=== PATIENT | female | born 1995 | race Caucasian/White ===

== ENCOUNTER 2019-02-17 13:18 | Inpatient (IN) | payer OTHER ==
[~2019-02-17] VITALS: Ht 170.2 cm; Wt 81.4 kg
[2019-02-17] MEDS ORDERED: ONDANSETRON PF 4 MG/2 ML VIAL. ONE (14:17)
[2019-02-17] MEDS ORDERED: IV NORMAL SALINE 1000ML BAG 1,000 ML IV ONE (14:30)
[2019-02-17] MEDS ORDERED: ONDANSETRON PF 4 MG/2 ML VIAL. IV ONE ×3 (14:30→17:30)
[2019-02-17 14:39] LABS: BILIRUBIN,URINE NEGATIVE (NEG); CLARITY,URINE CLEAR; COLOR,URINE YELLOW; NITRITE,URINE NEGATIVE (NEG); PROTEIN,URINE NEGATIVE (NEG-TRACE); UROBILINOGEN,URINE 0.2 mg/dL (0.2 mg/dL)
[2019-02-17 14:49] LABS: BACTERIA,URINE 0 /HPF (0-FEW); RBC,URINE 0 /HPF (0-2); SQUAMOUS EPITHELIAL CELL,UR FEW /LPF; WBC,URINE 0 /HPF (0-4)
[2019-02-17 15:01] LABS: BASO # 0.1 x10^3/uL (0.0-0.2); BASO % 1 % (0-3); EOS # 0.1 x10^3/uL (0.0-0.7); EOS % 1 % (0-3); HEMATOCRIT 43.6 % (36.0-47.0); HEMOGLOBIN 14.4 g/dL (12.0-15.5); LYMPH # 2.5 x10^3/uL (1.0-4.8); LYMPH % 25 % (24-48); MEAN CORPUSCULAR HEMOGLOBIN 28 pg (25-35); MEAN CORPUSCULAR HGB CONC 33 g/dL (31-37); MEAN CORPUSCULAR VOLUME 85 fL (79-100); MONO # 0.5 x10^3/uL (0.0-1.1); MONO % 5 % (0-9); NEUT # 6.9 x10^3/uL (1.8-7.7); NEUT % 69 % (31-73); PLATELET COUNT 245 x10^3/uL (140-400); RED BLOOD COUNT 5.14 x10^6/uL (3.50-5.40); RED CELL DISTRIBUTION WIDTH 13.7 % (11.5-14.5)
--- NOTE | 2019-02-17 15:07 | PHYS DOC ---
Past Medical History Past Medical History: Other Additional Past Medical Histor: hypoglycemic (TERENCE ABERNATHY APRN) Past Surgical History: Cholecystectomy, Tonsillectomy Additional Past Surgical Histo: wisdom teeth (TERENCE ABERNATHY APRN) Alcohol Use: None Drug Use: None (TERENCE ABERNATHY APRN) Attending Signature I have participated in the care of this patient and I have reviewed and agree with all pertinent clinical information above including history, exam, and recommendations. (MELANIE THAO MD) Adult General Chief Complaint Chief Complaint: ABDOMINAL PAIN HPI HPI Patient is a 23 year old female that presents with abdominal pain and back pain that started last night around 1245. The patient states she's had nausea and vomiting all day. She also states that she went to the bathroom earlier and that did not help her pain. She says she's been having global urinary frequency as well. Rates her pain 10 out of 10 in severity and the pain is located in the right lower quadrant of her abdomen. (TERENCE ABERNATHY APRN) Review of Systems Review of Systems Constitutional: Denies fever or chills [] Eyes: Denies change in visual acuity, redness, or eye pain [] HENT: Denies nasal congestion or sore throat [] Respiratory: Denies cough or shortness of breath [] Cardiovascular: No additional information not addressed in HPI [] GI: Reports abdominal pain, nausea, vomiting, Denies bloody stools or diarrhea [] : Reports frequency. Musculoskeletal: Denies back pain or joint pain [] Integument: Denies rash or skin lesions [] Neurologic: Denies headache, focal weakness or sensory changes [] Complete systems were reviewed and found to be within normal limits, except as documented in this note. (TERENCE ABERNATHY APRN) Current Medications Current Medications Current Medications Medications (Trade) Dose Ordered Sig/Judy Start Time Stop Time Status Last Admin Dose Admin Info (CONTRAST GIVEN -- Rx MONITORING) 1 each PRN DAILY PRN 02/17/19 15:45 02/19/19 15:12 DC Iohexol (Omnipaque 300 Mg/ml) 75 ml 1X ONCE 02/17/19 15:45 02/17/19 15:46 DC 02/17/19 15:56 75 ML Morphine Sulfate (Morphine Sulfate) 4 mg 1X ONCE 02/17/19 17:00 02/17/19 17:05 DC 02/17/19 17:25 4 MG Ondansetron HCl (Zofran) 4 mg 1X ONCE 02/17/19 14:30 02/17/19 14:34 DC Sodium Chloride 1,000 ml @ 1,000 mls/hr 1X ONCE 02/17/19 14:30 02/17/19 15:29 DC 02/17/19 14:30 1,000 MLS/HR (MELANIE THAO MD) Allergies Allergies Allergies Coded Allergies Type Severity Reaction Last Updated Verified doxycycline Allergy Intermediate Nausea 10/27/14 No (MELANIE THAO MD) Physical Exam Physical Exam Constitutional: Well developed, well nourished, no acute distress, non-toxic appearance. [] HENT: Normocephalic, atraumatic, bilateral external ears normal, oropharynx moist, no oral exudates, nose normal. [] Eyes: PERRLA, EOMI, conjunctiva normal, no discharge. [] Neck: Normal range of motion, no tenderness, supple, no stridor. [] Cardiovascular:Heart rate regular rhythm, no murmur [] Lungs & Thorax: Bilateral breath sounds clear to auscultation [] Abdomen: Bowel sounds normal, soft, RLQ rebound tenderness, has heel tap tenderness, no masses, no pulsatile masses. [] Skin: Warm, dry, no erythema, no rash. [] Back: No tenderness, no CVA tenderness. [] Extremities: No tenderness, no cyanosis, no clubbing, ROM intact, no edema. [] Neurologic: Alert and oriented X 3, normal motor function, normal sensory function, no focal deficits noted. [] Psychologic: Affect normal, judgement normal, mood normal. [] (TERENCE ABERNATHY APRN) Current Patient Data Vital Signs Vital Signs Date Time Temp Pulse Resp B/P (MAP) Pulse Ox O2 Delivery O2 Flow Rate FiO2 02/17/19 17:00 80 16 110/71 (84) 97 Room Air 02/17/19 13:25 97.9 97.9 (MELANIE THAO MD) Lab Values Laboratory Tests Test 02/17/19 14:18 02/17/19 14:21 02/17/19 14:50 Urine Collection Type Void Urine Color Yellow Urine Clarity Clear Urine pH 6.0 Urine Specific [place] 1.015 Urine Protein Negative mg/dL (NEG-TRACE) Urine Glucose (UA) Negative mg/dL (NEG) Urine Ketones (Stick) Negative mg/dL (NEG) Urine Blood Negative (NEG) Urine Nitrite Negative (NEG) Urine Bilirubin Negative (NEG) Urine Urobilinogen Dipstick 0.2 mg/dL (0.2 mg/dL) Urine Leukocyte Esterase Trace (NEG) Urine RBC 0 /HPF (0-2) Urine WBC 0 /HPF (0-4) Urine Squamous Epithelial Cells Few /LPF Urine Bacteria 0 /HPF (0-FEW) Urine Mucus Slight /LPF POC Urine HCG, Qualitative Hcg negative (Negative) White Blood Count 10.0 x10^3/uL (4.0-11.0) Red Blood Count 5.14 x10^6/uL (3.50-5.40) Hemoglobin 14.4 g/dL (12.0-15.5) Hematocrit 43.6 % (36.0-47.0) Mean Corpuscular Volume 85 fL (79-100) Mean Corpuscular Hemoglobin 28 pg (25-35) Mean Corpuscular Hemoglobin Concent 33 g/dL (31-37) Red Cell Distribution Width 13.7 % (11.5-14.5) Platelet Count 245 x10^3/uL (140-400) Neutrophils (%) (Auto) 69 % (31-73) Lymphocytes (%) (Auto) 25 % (24-48) Monocytes (%) (Auto) 5 % (0-9) Eosinophils (%) (Auto) 1 % (0-3) Basophils (%) (Auto) 1 % (0-3) Neutrophils # (Auto) 6.9 x10^3/uL (1.8-7.7) Lymphocytes # (Auto) 2.5 x10^3/uL (1.0-4.8) Monocytes # (Auto) 0.5 x10^3/uL (0.0-1.1) Eosinophils # (Auto) 0.1 x10^3/uL (0.0-0.7) Basophils # (Auto) 0.1 x10^3/uL (0.0-0.2) Prothrombin Time 12.9 SEC (11.7-14.0) Prothrombin Time INR 1.0 (0.8-1.1) Sodium Level 142 mmol/L (136-145) Potassium Level 4.3 mmol/L (3.5-5.1) Chloride Level 107 mmol/L (98-107) Carbon Dioxide Level 26 mmol/L (21-32) Anion Gap 9 (6-14) Blood Urea Nitrogen 11 mg/dL (7-20) Creatinine 0.9 mg/dL (0.6-1.0) Estimated GFR (Cockcroft-Gault) 76.9 BUN/Creatinine Ratio 12 (6-20) Glucose Level 93 mg/dL (70-99) Calcium Level 8.5 mg/dL (8.5-10.1) Total Bilirubin 0.4 mg/dL (0.2-1.0) Aspartate Amino Transferase (AST) 22 U/L (15-37) Alanine Aminotransferase (ALT) 32 U/L (14-59) Alkaline Phosphatase 69 U/L (46-116) Total Protein 7.5 g/dL (6.4-8.2) Albumin 4.0 g/dL (3.4-5.0) Albumin/Globulin Ratio 1.1 (1.0-1.7) Lipase 130 U/L (73-393) Laboratory Tests 02/17/19 14:50 Laboratory Tests 02/17/19 14:50 Microbiology 02/17/19 Urine Culture - Final, Complete 02/17/19 Urine Culture Result 1 (MAL) - Final, Complete (MELANIE THAO MD) EKG EKG [] (TERENCE ABERNATHY APRN) Radiology/Procedures Radiology/Procedures [][facility] [address] [place] [address] IMAGING REPORT Signed PATIENT: MARIBELL CRISTOBAL ACCOUNT: [id number] : 1995 LOCATION: ER AGE: 23 SEX: F EXAM STATUS: REG ER ORD. PHYSICIAN: TERENCE ABERNATHY APRN REASON: rlq abd pain PROCEDURE: CT ABD PELV W/ IV CONTRST ONLY CT of the abdomen and pelvis with contrast 02/17/2019 4:01 PM Indication: Right lower quadrant abdominal pain Comparison study: None available Technique: Multidetector CT imaging of the abdomen and pelvis was performed following the administration of IV contrast. Findings: The partially visualized lung bases demonstrate no acute abnormality. Prior cholecystectomy noted. Mild prominence of the common bile duct is noted, most likely reservoir effect. Spleen, adrenal glands, kidneys, and pancreas are grossly unremarkable. There is no bowel obstruction. Radiodense material noted within the base of the appendix. Possibly appendicoliths. The distal aspect of the appendix is mildly dilated measuring up to 1 cm in diameter (coronal image 23). Minimal periappendiceal fat stranding may be present. The bladder is grossly unremarkable. Intrauterine device noted. No significant free fluid is seen in the abdomen or pelvis. No acute osseous abnormality is seen. IMPRESSION: Radiodense material in base of the appendix with dilatation of the appendix up to 1 cm and minimal periappendiceal stranding. Findings concerning for mild or early acute appendicitis. CT DOSING PQRS STATEMENT: One or more of the following individualized dose reduction techniques were utilized for this examination: 1. Automated exposure control 2. Adjustment of the mA and/or kV according to patient size 3. Use of iterative reconstruction technique Electronically signed by: Jonathan Camejo MD (02/17/2019 4:06 PM) [facility] DICTATED and SIGNED BY: JONATHAN CAMEJO MD (TERENCE ABERNATHY APRN) Course & Med Decision Making Course & Med Decision Making Pertinent Labs and Imaging studies reviewed. (See chart for details) Patient does not have gallbladder but will evaluate her appendix. Will get labs and CT and give supportive care. Labs are unremarkable. Paged General Surgery at 1640. Discussed with Dr. Varma who request hospital admission, Zosyn and then NPO after midnight and will likely perform surgery in the morning. Discussed with Dr. Starr at 1710 who agrees to admission. (TERENCE ABERNATHY APRN) Dragon Disclaimer Dragon Disclaimer This electronic medical record was generated, in whole or in part, using a voice recognition dictation system. (TERENCE ABERNATHY APRN) Departure Departure Impression: Primary Impression: Acute appendicitis Disposition: ADMITTED INPATIENT Admitting Physician: WAYLON (TERENCE ABERNATHY APRN) Condition: STABLE Referrals: NO PCP (PCP) Scripts Hydrocodone Bit/Acetaminophen (HYDROCODONE-APAP 5-325 ) 1 Tab Tablet 1 TAB PO PRN Q4HRS PRN for MILD PAIN 1-3, #30 TAB 0 Refills Prov: NICKEL,HAMZAH L [employer] 02/19/19 Docusate Sodium (DOCUSATE SODIUM) 100 Mg Capsule 100 MG PO BID for constipation, #60 CAP 0 Refills Prov: HAMZAH LEYVA APRN 02/19/19 Problem Qualifiers Primary Impression: Acute appendicitis Acute appendicitis type: unspecified acute appendicitis type Qualified Codes: K35.80 - Unspecified acute appendicitis TERENCE ABERNATHY APRN Feb 17, 2019 15:07 MELANIE THAO MD Feb 20, 2019 06:17
[2019-02-17] MEDS ORDERED: MORPHINE SULFATE 4 MG/ML VIAL. IV ONE ×2 (15:15→17:00)
[2019-02-17 15:22] LABS: CALCIUM 8.5 mg/dL (8.5-10.1); CREATININE 0.9 mg/dL (0.6-1.0); GFR 76.9; POTASSIUM 4.3 mmol/L (3.5-5.1)
[2019-02-17 15:36] LABS: ALBUMIN/GLOBULIN RATIO 1.1 (1.0-1.7); TOTAL BILIRUBIN 0.4 mg/dL (0.2-1.0); TOTAL PROTEIN 7.5 g/dL (6.4-8.2)
[2019-02-17] MEDS ORDERED: CONTRAST GIVEN. MC PRN (15:45)
[2019-02-17] MEDS ORDERED: IOHEXOL 300 MG/ML 100ML VIAL. IV ONE (15:45)
--- NOTE | 2019-02-17 16:09 | RAD ---
CT of the abdomen and pelvis with contrast 02/17/2019 4:01 PM Indication: Right lower quadrant abdominal pain Comparison study: None available Technique: Multidetector CT imaging of the abdomen and pelvis was performed following the administration of IV contrast. Findings: The partially visualized lung bases demonstrate no acute abnormality. Prior cholecystectomy noted. Mild prominence of the common bile duct is noted, most likely reservoir effect. Spleen, adrenal glands, kidneys, and pancreas are grossly unremarkable. There is no bowel obstruction. Radiodense material noted within the base of the appendix. Possibly appendicoliths. The distal aspect of the appendix is mildly dilated measuring up to 1 cm in diameter (coronal image 23). Minimal periappendiceal fat stranding may be present. The bladder is grossly unremarkable. Intrauterine device noted. No significant free fluid is seen in the abdomen or pelvis. No acute osseous abnormality is seen. IMPRESSION: Radiodense material in base of the appendix with dilatation of the appendix up to 1 cm and minimal periappendiceal stranding. Findings concerning for mild or early acute appendicitis. CT DOSING PQRS STATEMENT: One or more of the following individualized dose reduction techniques were utilized for this examination: 1. Automated exposure control 2. Adjustment of the mA and/or kV according to patient size 3. Use of iterative reconstruction technique Electronically signed by: Jonathan Shaver MD (02/17/2019 4:06 PM) [facility]
[2019-02-17] MEDS ORDERED: PIPERACILLIN/TAZOBACTAM 3.375 GM in IV NORMAL SALINE 50ML 50 ML IV ONE (17:30)
[2019-02-17] MEDS ORDERED: NICOTINE 21MG PATCH. TD PRN (17:45)
[2019-02-17] MEDS ORDERED: ONDANSETRON PF 4 MG/2 ML VIAL. IVP PRN (17:45)
--- NOTE | 2019-02-17 17:49 | PDOC1 ---
History and Physical Date of Admission Date of Admission DATE: 02/17/19 TIME: 17:46 Identification/Chief Complaint Chief Complaint right sided abd pain started last night Source Source: Caregiver, Chart review, Patient History of Present Illness History of Present Illness 23 white female, no signif past medical aside from occasional zoloft at home, RLQ pain and back pain last night, some nausea, low grade temp she claims, no diarrhea, Imaging shows appy, BLood work ok, NAuseas, bucket at beside, Consents to [place], GS aware, NPO post MN for sx tmr Past Medical History Psych: Depression Past Surgical History Past Surgical History: Other (wisdom tooth removal) Family History Family History: Hypertension Social History Smoke: <1 pack per day ALCOHOL: occassional Drugs: None Current Problem List Problem List Problems Medical Problems: (1) Acute appendicitis Status: Acute Current Medications Current Medications Current Medications Ondansetron HCl (Zofran) 4 mg STK-MED ONCE .ROUTE ; Start 02/17/19 at 14:17; Stop 02/17/19 at 14:17; Status DC Ondansetron HCl (Zofran) 4 mg 1X ONCE IV Last administered on 02/17/19at 14:30; Start 02/17/19 at 14:30; Stop 02/17/19 at 14:34; Status DC Ondansetron HCl (Zofran) 4 mg 1X ONCE IV ; Start 02/17/19 at 14:30; Stop 02/17/19 at 14:34; Status DC Sodium Chloride 1,000 ml @ 1,000 mls/hr 1X ONCE IV Last administered on 02/17/19at 14:30; Start 02/17/19 at 14:30; Stop 02/17/19 at 15:29; Status DC Morphine Sulfate (Morphine Sulfate) 4 mg 1X ONCE IV Last administered on 02/17/19at 15:10; Start 02/17/19 at 15:15; Stop 02/17/19 at 15:16; Status DC Iohexol (Omnipaque 300 Mg/ml) 75 ml 1X ONCE IV Last administered on 02/17/19at 15:56; Start 02/17/19 at 15:45; Stop 02/17/19 at 15:46; Status DC Info (CONTRAST GIVEN -- Rx MONITORING) 1 each PRN DAILY PRN MC SEE COMMENTS; Start 02/17/19 at 15:45; Stop 02/19/19 at 15:44 Morphine Sulfate (Morphine Sulfate) 4 mg 1X ONCE IV Last administered on at 17:25; Start 02/17/19 at 17:00; Stop 02/17/19 at 17:05; Status DC Ondansetron HCl (Zofran) 4 mg 1X ONCE IV Last administered on 02/17/19at 17:24; Start 02/17/19 at 17:30; Stop 02/17/19 at 17:31; Status DC Piperacillin Sod/ Tazobactam Sod 3.375 gm/Sodium Chloride 50 ml @ 100 mls/hr 1X ONCE IV Last administered on 02/17/19at 17:29; Start 02/17/19 at 17:30; Stop 02/17/19 at 17:59 Allergies Allergies: Coded Allergies: doxycycline (Unverified Allergy, Intermediate, Nausea, 10/27/14) patient states nausea and lips numb ROS Review of System as per HPi, all else 14 pt neg Physical Exam General: Alert, Oriented X3, Cooperative, No acute distress, Other (bucket at bedside, nauseus) HEENT: Atraumatic, PERRLA Lungs: Clear to auscultation Heart: S1S2, RRR, no thrills, no rubs Cardiovascular: S1, S2 Breasts: Normal, Rt breast nml w/o mass, Lt breast nml w/o mass, Nipples normal Abdomen: Normal bowel sounds, Soft, Other (tender RLQ with voluntary guarding) PELVIC: Nml ext genitalia Extremities: No clubbing, No cyanosis, No edema, Normal pulses, No tenderness/swelling Skin: No rashes, No breakdown, No significant lesion Neuro: Normal gait, Normal speech, Strength at 5/5 X4 ext, Normal tone, Sensation intact, Cranial nerves 3-12 NL, Reflexes 2+ Psych/Mental Status: Mental status NL, Mood NL Vitals Vitals Vital Signs Date Time Temp Pulse Resp B/P (MAP) Pulse Ox O2 Delivery O2 Flow Rate FiO2 02/17/19 17:25 16 98 Room Air 02/17/19 16:00 84 102/68 (79) 02/17/19 13:25 97.9 97.9 Labs Labs Laboratory Tests Test 02/17/19 14:18 02/17/19 14:21 02/17/19 14:50 Urine Collection Type Void Urine Color Yellow Urine Clarity Clear Urine pH 6.0 Urine Specific [place] 1.015 Urine Protein Negative mg/dL (NEG-TRACE) Urine Glucose (UA) Negative mg/dL (NEG) Urine Ketones (Stick) Negative mg/dL (NEG) Urine Blood Negative (NEG) Urine Nitrite Negative (NEG) Urine Bilirubin Negative (NEG) Urine Urobilinogen Dipstick 0.2 mg/dL (0.2 mg/dL) Urine Leukocyte Esterase Trace (NEG) Urine RBC 0 /HPF (0-2) Urine WBC 0 /HPF (0-4) Urine Squamous Epithelial Cells Few /LPF Urine Bacteria 0 /HPF (0-FEW) Urine Mucus Slight /LPF Bedside Urine HCG, Qualitative Hcg negative (Negative) White Blood Count 10.0 x10^3/uL (4.0-11.0) Red Blood Count 5.14 x10^6/uL (3.50-5.40) Hemoglobin 14.4 g/dL (12.0-15.5) Hematocrit 43.6 % (36.0-47.0) Mean Corpuscular Volume 85 fL (79-100) Mean Corpuscular Hemoglobin 28 pg (25-35) Mean Corpuscular Hemoglobin Concent 33 g/dL (31-37) Red Cell Distribution Width 13.7 % (11.5-14.5) Platelet Count 245 x10^3/uL (140-400) Neutrophils (%) (Auto) 69 % (31-73) Lymphocytes (%) (Auto) 25 % (24-48) Monocytes (%) (Auto) 5 % (0-9) Eosinophils (%) (Auto) 1 % (0-3) Basophils (%) (Auto) 1 % (0-3) Neutrophils # (Auto) 6.9 x10^3/uL (1.8-7.7) Lymphocytes # (Auto) 2.5 x10^3/uL (1.0-4.8) Monocytes # (Auto) 0.5 x10^3/uL (0.0-1.1) Eosinophils # (Auto) 0.1 x10^3/uL (0.0-0.7) Basophils # (Auto) 0.1 x10^3/uL (0.0-0.2) Sodium Level 142 mmol/L (136-145) Potassium Level 4.3 mmol/L (3.5-5.1) Chloride Level 107 mmol/L (98-107) Carbon Dioxide Level 26 mmol/L (21-32) Anion Gap 9 (6-14) Blood Urea Nitrogen 11 mg/dL (7-20) Creatinine 0.9 mg/dL (0.6-1.0) Estimated GFR (Cockcroft-Gault) 76.9 BUN/Creatinine Ratio 12 (6-20) Glucose Level 93 mg/dL (70-99) Calcium Level 8.5 mg/dL (8.5-10.1) Total Bilirubin 0.4 mg/dL (0.2-1.0) Aspartate Amino Transf (AST/SGOT) 22 U/L (15-37) Alanine Aminotransferase (ALT/SGPT) 32 U/L (14-59) Alkaline Phosphatase 69 U/L (46-116) Total Protein 7.5 g/dL (6.4-8.2) Albumin 4.0 g/dL (3.4-5.0) Albumin/Globulin Ratio 1.1 (1.0-1.7) Lipase 130 U/L (73-393) Laboratory Tests Test 02/17/19 14:18 02/17/19 14:21 02/17/19 14:50 Urine Collection Type Void Urine Color Yellow Urine Clarity Clear Urine pH 6.0 Urine Specific [place] 1.015 Urine Protein Negative mg/dL (NEG-TRACE) Urine Glucose (UA) Negative mg/dL (NEG) Urine Ketones (Stick) Negative mg/dL (NEG) Urine Blood Negative (NEG) Urine Nitrite Negative (NEG) Urine Bilirubin Negative (NEG) Urine Urobilinogen Dipstick 0.2 mg/dL (0.2 mg/dL) Urine Leukocyte Esterase Trace (NEG) Urine RBC 0 /HPF (0-2) Urine WBC 0 /HPF (0-4) Urine Squamous Epithelial Cells Few /LPF Urine Bacteria 0 /HPF (0-FEW) Urine Mucus Slight /LPF Bedside Urine HCG, Qualitative Hcg negative (Negative) White Blood Count 10.0 x10^3/uL (4.0-11.0) Red Blood Count 5.14 x10^6/uL (3.50-5.40) Hemoglobin 14.4 g/dL (12.0-15.5) Hematocrit 43.6 % (36.0-47.0) Mean Corpuscular Volume 85 fL (79-100) Mean Corpuscular Hemoglobin 28 pg (25-35) Mean Corpuscular Hemoglobin Concent 33 g/dL (31-37) Red Cell Distribution Width 13.7 % (11.5-14.5) Platelet Count 245 x10^3/uL (140-400) Neutrophils (%) (Auto) 69 % (31-73) Lymphocytes (%) (Auto) 25 % (24-48) Monocytes (%) (Auto) 5 % (0-9) Eosinophils (%) (Auto) 1 % (0-3) Basophils (%) (Auto) 1 % (0-3) Neutrophils # (Auto) 6.9 x10^3/uL (1.8-7.7) Lymphocytes # (Auto) 2.5 x10^3/uL (1.0-4.8) Monocytes # (Auto) 0.5 x10^3/uL (0.0-1.1) Eosinophils # (Auto) 0.1 x10^3/uL (0.0-0.7) Basophils # (Auto) 0.1 x10^3/uL (0.0-0.2) Sodium Level 142 mmol/L (136-145) Potassium Level 4.3 mmol/L (3.5-5.1) Chloride Level 107 mmol/L (98-107) Carbon Dioxide Level 26 mmol/L (21-32) Anion Gap 9 (6-14) Blood Urea Nitrogen 11 mg/dL (7-20) Creatinine 0.9 mg/dL (0.6-1.0) Estimated GFR (Cockcroft-Gault) 76.9 BUN/Creatinine Ratio 12 (6-20) Glucose Level 93 mg/dL (70-99) Calcium Level 8.5 mg/dL (8.5-10.1) Total Bilirubin 0.4 mg/dL (0.2-1.0) Aspartate Amino Transf (AST/SGOT) 22 U/L (15-37) Alanine Aminotransferase (ALT/SGPT) 32 U/L (14-59) Alkaline Phosphatase 69 U/L (46-116) Total Protein 7.5 g/dL (6.4-8.2) Albumin 4.0 g/dL (3.4-5.0) Albumin/Globulin Ratio 1.1 (1.0-1.7) Lipase 130 U/L (73-393) VTE Prophylaxis Ordered VTE Prophylaxis Devices: Yes VTE Pharmacological Prophylaxi: Yes Assessment/Plan Assessment/Plan Acute appy Depression NOS Overweight bMI 28 Allergy to doxy (rash) PLAn: IVF, pain control, NPO GS Appy tmr MEd surg bed KURT DE LEON Y Feb 17, 2019 17:49
[2019-02-17 18:14] LABS: PROTHROMBIN TIME PATIENT 12.9 SEC (11.7-14.0)
[2019-02-17 18:55] VITALS: BP_SYST 58; BP_SYST 98; BP_DIAS 44
[2019-02-17] MEDS: IV NORMAL SALINE 1000ML BAG 1,000 ML IV SCH (19:24)
[2019-02-17] MEDS: MORPHINE SULFATE 2 MG/ML VIAL. IV PRN (20:40)
[2019-02-17] MEDS ORDERED: PROCHLORPERAZINE 10 MG/2 ML VIAL. IM PRN (22:00)
[2019-02-17] MEDS: fentaNYL PF VIAL 100 MCG/2 ML VIAL IVP PRN (22:52)
[2019-02-17 23:05] VITALS: BP 95/59
[2019-02-18] VITALS (14 sets, daily range): BP systolic 76–102; BP diastolic 36–63
[2019-02-18] MEDS: MORPHINE SULFATE 2 MG/ML VIAL. IV PRN ×3 (06:09→23:18)
[2019-02-18] MEDS: IV NORMAL SALINE 1000ML BAG 1,000 ML IV SCH ×3 (06:10→23:18)
[2019-02-18] MEDS: fentaNYL PF VIAL 100 MCG/2 ML VIAL IVP PRN ×2 (08:02→11:49)
--- NOTE | 2019-02-18 08:18 | PDOC2 ---
HAMZAH LEYVA [employer] 02/18/19 0818: CONSULT Date of Consult Date of Consult DATE: 02/18/19 TIME: 08:15 Reason for Consult Reason for Consult: RLQ pain Referring Physician Referring Physician: ER Identification/Chief Complaint Chief Complaint abdominal pain Source Source: Chart review, Patient History of Present Illness Reason for Visit: 2 days acute RLQ pain, associated nausea, chills. Pain aggravated with movem ent. Associated nausea Past Medical History Past Medical History no pertinent hx Psych: Depression Past Surgical History Past Surgical History: Cholecystectomy, Other (wisdom tooth removal) Family History Family History: Hypertension, Other (noncontributory to current illness ) Social History No ALCOHOL: occassional Drugs: None Current Problem List Problem List Problems Medical Problems: (1) Acute appendicitis Status: Acute Current Medications Current Medications Current Medications Ondansetron HCl (Zofran) 4 mg STK-MED ONCE .ROUTE ; Start 02/17/19 at 14:17; Stop 02/17/19 at 14:17; Status DC Ondansetron HCl (Zofran) 4 mg 1X ONCE IV Last administered on 02/17/19at 14:30; Start 02/17/19 at 14:30; Stop 02/17/19 at 14:34; Status DC Ondansetron HCl (Zofran) 4 mg 1X ONCE IV ; Start 02/17/19 at 14:30; Stop 02/17/19 at 14:34; Status DC Sodium Chloride 1,000 ml @ 1,000 mls/hr 1X ONCE IV Last administered on 02/17/19at 14:30; Start 02/17/19 at 14:30; Stop 02/17/19 at 15:29; Status DC Morphine Sulfate (Morphine Sulfate) 4 mg 1X ONCE IV Last administered on 02/17/19at 15:10; Start 02/17/19 at 15:15; Stop 02/17/19 at 15:16; Status DC Iohexol (Omnipaque 300 Mg/ml) 75 ml 1X ONCE IV Last administered on 02/17/19at 15:56; Start 02/17/19 at 15:45; Stop 02/17/19 at 15:46; Status DC Info (CONTRAST GIVEN -- Rx MONITORING) 1 each PRN DAILY PRN MC SEE COMMENTS; Start 02/17/19 at 15:45; Stop 02/19/19 at 15:44 Morphine Sulfate (Morphine Sulfate) 4 mg 1X ONCE IV Last administered on 02/17/19at 17:25; Start 02/17/19 at 17:00; Stop 02/17/19 at 17:05; Status DC Ondansetron HCl (Zofran) 4 mg 1X ONCE IV Last administered on 02/17/19at 17:24; Start 02/17/19 at 17:30; Stop 02/17/19 at 17:31; Status DC Piperacillin Sod/ Tazobactam Sod 3.375 gm/Sodium Chloride 50 ml @ 100 mls/hr 1X ONCE IV Last administered on 02/17/19at 17:29; Start 02/17/19 at 17:30; Stop 02/17/19 at 17:59; Status DC Morphine Sulfate (Morphine Sulfate) 2 mg PRN Q2HR PRN IV MODERATE PAIN Last administered on 02/18/19at 06:09; Start 02/17/19 at 17:45 Ondansetron HCl (Zofran) 4 mg PRN Q6HRS PRN IVP NAUSEA/VOMITING Last administered on 02/17/19at 20:39; Start 02/17/19 at 17:45 Fentanyl Citrate (Fentanyl 2ml Vial) 50 mcg PRN Q2HR PRN IVP SEVERE PAIN Last administered on 02/18/19at 08:02; Start 02/17/19 at 17:45 Nicotine (Nicoderm Cq 21mg) 1 patch PRN DAILY PRN TD SMOKING CESSATION; Start 02/17/19 at 17:45 Sodium Chloride 1,000 ml @ 100 mls/hr Q10H IV Last administered on 02/18/19at 06:10; Start 02/17/19 at 17:45 Prochlorperazine Edisylate (Compazine) 10 mg PRN Q6HRS PRN IM NAUSEA/VOMITING Last administered on 02/17/19at 22:45; Start 02/17/19 at 22:00 Allergies Allergies: Coded Allergies: doxycycline (Unverified Allergy, Intermediate, Nausea, 10/27/14) patient states nausea and lips numb ROS General: YES: Chills, Fatigue PSYCHOLOGICAL ROS: No: Anxiety, Depression Eyes: No Blurry vision, No Double vision HEENT: No: Heacaches, Sore Throat Hematological and Lymphatic: No: Bleeding Problems, Blood Clots Respiratory: No: Cough, Shortness of breath Cardiovascular: No Chest Pain, No Palpitations Gastrointestinal: Yes Other (see hpi) Genitourinary: No Dysuria, No Hematuria Musculoskeletal: No Joint Pain, No Muscle Pain Neurological: No Impaired Coord/balance, No Numbness/Tingling Skin: No Pruritus, No Rash Physical Exam General: Alert, Oriented X3, Cooperative, No acute distress HEENT: PERRLA, Mucous membr. moist/pink Lungs: Clear to auscultation, Normal air movement Heart: Regular rate, Normal S1, Normal S2, No murmurs Abdomen: Soft, Other (moderate ttp to RLQ) Extremities: No clubbing, No cyanosis Skin: No rashes, No breakdown Neuro: Normal gait, Normal speech Psych/Mental Status: Mental status NL, Mood NL MUSCULOSKELETAL: No deformity, No swelling Vitals VITALS Vital Signs Date Time Temp Pulse Resp B/P (MAP) Pulse Ox O2 Delivery O2 Flow Rate FiO2 02/18/19 08:02 94 Room Air 02/18/19 06:11 98.8 96/54 (68) 98.8 02/18/19 06:09 20 02/18/19 03:00 86 Labs Labs Laboratory Tests Test 02/17/19 14:18 02/17/19 14:21 02/17/19 14:50 Urine Collection Type Void Urine Color Yellow Urine Clarity Clear Urine pH 6.0 Urine Specific [place] 1.015 Urine Protein Negative mg/dL (NEG-TRACE) Urine Glucose (UA) Negative mg/dL (NEG) Urine Ketones (Stick) Negative mg/dL (NEG) Urine Blood Negative (NEG) Urine Nitrite Negative (NEG) Urine Bilirubin Negative (NEG) Urine Urobilinogen Dipstick 0.2 mg/dL (0.2 mg/dL) Urine Leukocyte Esterase Trace (NEG) Urine RBC 0 /HPF (0-2) Urine WBC 0 /HPF (0-4) Urine Squamous Epithelial Cells Few /LPF Urine Bacteria 0 /HPF (0-FEW) Urine Mucus Slight /LPF Bedside Urine HCG, Qualitative Hcg negative (Negative) White Blood Count 10.0 x10^3/uL (4.0-11.0) Red Blood Count 5.14 x10^6/uL (3.50-5.40) Hemoglobin 14.4 g/dL (12.0-15.5) Hematocrit 43.6 % (36.0-47.0) Mean Corpuscular Volume 85 fL (79-100) Mean Corpuscular Hemoglobin 28 pg (25-35) Mean Corpuscular Hemoglobin Concent 33 g/dL (31-37) Red Cell Distribution Width 13.7 % (11.5-14.5) Platelet Count 245 x10^3/uL (140-400) Neutrophils (%) (Auto) 69 % (31-73) Lymphocytes (%) (Auto) 25 % (24-48) Monocytes (%) (Auto) 5 % (0-9) Eosinophils (%) (Auto) 1 % (0-3) Basophils (%) (Auto) 1 % (0-3) Neutrophils # (Auto) 6.9 x10^3/uL (1.8-7.7) Lymphocytes # (Auto) 2.5 x10^3/uL (1.0-4.8) Monocytes # (Auto) 0.5 x10^3/uL (0.0-1.1) Eosinophils # (Auto) 0.1 x10^3/uL (0.0-0.7) Basophils # (Auto) 0.1 x10^3/uL (0.0-0.2) Prothrombin Time 12.9 SEC (11.7-14.0) Prothromb Time International Ratio 1.0 (0.8-1.1) Sodium Level 142 mmol/L (136-145) Potassium Level 4.3 mmol/L (3.5-5.1) Chloride Level 107 mmol/L (98-107) Carbon Dioxide Level 26 mmol/L (21-32) Anion Gap 9 (6-14) Blood Urea Nitrogen 11 mg/dL (7-20) Creatinine 0.9 mg/dL (0.6-1.0) Estimated GFR (Cockcroft-Gault) 76.9 BUN/Creatinine Ratio 12 (6-20) Glucose Level 93 mg/dL (70-99) Calcium Level 8.5 mg/dL (8.5-10.1) Total Bilirubin 0.4 mg/dL (0.2-1.0) Aspartate Amino Transf (AST/SGOT) 22 U/L (15-37) Alanine Aminotransferase (ALT/SGPT) 32 U/L (14-59) Alkaline Phosphatase 69 U/L (46-116) Total Protein 7.5 g/dL (6.4-8.2) Albumin 4.0 g/dL (3.4-5.0) Albumin/Globulin Ratio 1.1 (1.0-1.7) Lipase 130 U/L (73-393) Laboratory Tests Test 02/17/19 14:18 02/17/19 14:21 02/17/19 14:50 Urine Collection Type Void Urine Color Yellow Urine Clarity Clear Urine pH 6.0 Urine Specific [place] 1.015 Urine Protein Negative mg/dL (NEG-TRACE) Urine Glucose (UA) Negative mg/dL (NEG) Urine Ketones (Stick) Negative mg/dL (NEG) Urine Blood Negative (NEG) Urine Nitrite Negative (NEG) Urine Bilirubin Negative (NEG) Urine Urobilinogen Dipstick 0.2 mg/dL (0.2 mg/dL) Urine Leukocyte Esterase Trace (NEG) Urine RBC 0 /HPF (0-2) Urine WBC 0 /HPF (0-4) Urine Squamous Epithelial Cells Few /LPF Urine Bacteria 0 /HPF (0-FEW) Urine Mucus Slight /LPF Bedside Urine HCG, Qualitative Hcg negative (Negative) White Blood Count 10.0 x10^3/uL (4.0-11.0) Red Blood Count 5.14 x10^6/uL (3.50-5.40) Hemoglobin 14.4 g/dL (12.0-15.5) Hematocrit 43.6 % (36.0-47.0) Mean Corpuscular Volume 85 fL (79-100) Mean Corpuscular Hemoglobin 28 pg (25-35) Mean Corpuscular Hemoglobin Concent 33 g/dL (31-37) Red Cell Distribution Width 13.7 % (11.5-14.5) Platelet Count 245 x10^3/uL (140-400) Neutrophils (%) (Auto) 69 % (31-73) Lymphocytes (%) (Auto) 25 % (24-48) Monocytes (%) (Auto) 5 % (0-9) Eosinophils (%) (Auto) 1 % (0-3) Basophils (%) (Auto) 1 % (0-3) Neutrophils # (Auto) 6.9 x10^3/uL (1.8-7.7) Lymphocytes # (Auto) 2.5 x10^3/uL (1.0-4.8) Monocytes # (Auto) 0.5 x10^3/uL (0.0-1.1) Eosinophils # (Auto) 0.1 x10^3/uL (0.0-0.7) Basophils # (Auto) 0.1 x10^3/uL (0.0-0.2) Prothrombin Time 12.9 SEC (11.7-14.0) Prothromb Time International Ratio 1.0 (0.8-1.1) Sodium Level 142 mmol/L (136-145) Potassium Level 4.3 mmol/L (3.5-5.1) Chloride Level 107 mmol/L (98-107) Carbon Dioxide Level 26 mmol/L (21-32) Anion Gap 9 (6-14) Blood Urea Nitrogen 11 mg/dL (7-20) Creatinine 0.9 mg/dL (0.6-1.0) Estimated GFR (Cockcroft-Gault) 76.9 BUN/Creatinine Ratio 12 (6-20) Glucose Level 93 mg/dL (70-99) Calcium Level 8.5 mg/dL (8.5-10.1) Total Bilirubin 0.4 mg/dL (0.2-1.0) Aspartate Amino Transf (AST/SGOT) 22 U/L (15-37) Alanine Aminotransferase (ALT/SGPT) 32 U/L (14-59) Alkaline Phosphatase 69 U/L (46-116) Total Protein 7.5 g/dL (6.4-8.2) Albumin 4.0 g/dL (3.4-5.0) Albumin/Globulin Ratio 1.1 (1.0-1.7) Lipase 130 U/L (73-393) Assessment/Plan Assessment/Plan acute appendicitis plan lap appy today NAYELI WILSON MD 02/18/19 0755: CONSULT Assessment/Plan Assessment/Plan Pt seen and examined. Agree with Ms. Leyva's note Pt with c/o RLQ CT and labs suggestive, but not definitive, but history c/w appendicitis TO OR for laparoscopic appendectomy. R/R/B/A d/w pt. Risks, including, but not limited to: bleeding, infection, damage to surrounding structures, risk of anesthesia, risk of open, risk of . She appears to understand, her questions are answered and she elects to proceed. Thanks for consult! HAMZAH LEYVA APRN Feb 18, 2019 08:18 NAYELI WILSON MD Feb 18, 2019 09:56
[2019-02-18] MEDS ORDERED: IV RINGERS,LACTATED 1000ML 1,000 ML IV SCH (08:20)
[2019-02-18] MEDS ORDERED: fentaNYL PF VIAL 100 MCG/2 ML VIAL IV PRN ×2 (08:30)
[2019-02-18] MEDS ORDERED: MORPHINE SULFATE 2 MG/ML VIAL. IV PRN (08:30)
[2019-02-18] MEDS ORDERED: ONDANSETRON PF 4 MG/2 ML VIAL. IV PRN ×2 (08:30→14:30)
[2019-02-18] MEDS ORDERED: PROCHLORPERAZINE 10 MG/2 ML VIAL. IV PRN (08:30)
[2019-02-18] MEDS ORDERED: HYDROmorphone 2 MG/ML VIAL IV PRN (08:30)
--- NOTE | 2019-02-18 09:51 | PDOC ---
PROGRESS NOTES History of Present Illness History of Present Illness VTE Prophylaxis Ordered VTE Prophylaxis Devices: Yes VTE Pharmacological Prophylaxi: Yes Assessment/Plan Assessment/Plan Acute appendicitis on ct , Radiodense material in base of the appendix with dilatation of the appendix up to 1 cm and minimal periappendiceal stranding. Findings concerning for mild or early acute appendicitis. Depression NOS Overweight bMI 28 Allergy to doxy (rash) SMOKER 1/2 PPD PLAn: IVF, pain control, NPO GS Appy 02/18 MEd surg bed TO OR for laparoscopic appendectomy. DUONEBS QID PRN 28 min pt exam, chart review, > 50% of time spent with exam, chart review, pt care coordination Vitals Vitals Vital Signs Date Time Temp Pulse Resp B/P (MAP) Pulse Ox O2 Delivery O2 Flow Rate FiO2 02/18/19 08:44 94 Room Air 02/18/19 08:00 99.8 80 20 76/42 (53) 99.8 Physical Exam Physical Exam seen in PACU General: Alert, Oriented X3, Cooperative, No acute distress Heart: Regular rate, Normal S1, Normal S2, No murmurs Lungs: Clear Abdomen: Soft, Other (moderate ttp to RLQ) Extremities: No clubbing, No cyanosis Skin: No rashes, No breakdown Labs LABS REASON: rlq abd pain PROCEDURE: CT ABD PELV W/ IV CONTRST ONLY CT of the abdomen and pelvis with contrast 02/17/2019 4:01 PM Indication: Right lower quadrant abdominal pain Comparison study: None available Technique: Multidetector CT imaging of the abdomen and pelvis was performed following the administration of IV contrast. Findings: The partially visualized lung bases demonstrate no acute abnormality. Prior cholecystectomy noted. Mild prominence of the common bile duct is noted, most likely reservoir effect. Spleen, adrenal glands, kidneys, and pancreas are grossly unremarkable. There is no bowel obstruction. Radiodense material noted within the base of the appendix. Possibly appendicoliths. The distal aspect of the appendix is mildly dilated measuring up to 1 cm in diameter (coronal image 23). Minimal periappendiceal fat stranding may be present. The bladder is grossly unremarkable. Intrauterine device noted. No significant free fluid is seen in the abdomen or pelvis. No acute osseous abnormality is seen. IMPRESSION: Radiodense material in base of the appendix with dilatation of the appendix up to 1 cm and minimal periappendiceal stranding. Findings concerning for mild or early acute appendicitis. CT DOSING PQRS STATEMENT: One or more of the following individualized dose reduction techniques were utilized for this examination: 1. Automated exposure control 2. Adjustment of the mA and/or kV according to patient size 3. Use of iterative reconstruction technique Electronically signed by: Jonathan Shaver MD (02/17/2019 4:06 PM) [id number] Laboratory Tests Test 02/17/19 14:18 02/17/19 14:21 02/17/19 14:50 Urine Collection Type Void Urine Color Yellow Urine Clarity Clear Urine pH 6.0 Urine Specific [place] 1.015 Urine Protein Negative mg/dL (NEG-TRACE) Urine Glucose (UA) Negative mg/dL (NEG) Urine Ketones (Stick) Negative mg/dL (NEG) Urine Blood Negative (NEG) Urine Nitrite Negative (NEG) Urine Bilirubin Negative (NEG) Urine Urobilinogen Dipstick 0.2 mg/dL (0.2 mg/dL) Urine Leukocyte Esterase Trace (NEG) Urine RBC 0 /HPF (0-2) Urine WBC 0 /HPF (0-4) Urine Squamous Epithelial Cells Few /LPF Urine Bacteria 0 /HPF (0-FEW) Urine Mucus Slight /LPF Bedside Urine HCG, Qualitative Hcg negative (Negative) White Blood Count 10.0 x10^3/uL (4.0-11.0) Red Blood Count 5.14 x10^6/uL (3.50-5.40) Hemoglobin 14.4 g/dL (12.0-15.5) Hematocrit 43.6 % (36.0-47.0) Mean Corpuscular Volume 85 fL (79-100) Mean Corpuscular Hemoglobin 28 pg (25-35) Mean Corpuscular Hemoglobin Concent 33 g/dL (31-37) Red Cell Distribution Width 13.7 % (11.5-14.5) Platelet Count 245 x10^3/uL (140-400) Neutrophils (%) (Auto) 69 % (31-73) Lymphocytes (%) (Auto) 25 % (24-48) Monocytes (%) (Auto) 5 % (0-9) Eosinophils (%) (Auto) 1 % (0-3) Basophils (%) (Auto) 1 % (0-3) Neutrophils # (Auto) 6.9 x10^3/uL (1.8-7.7) Lymphocytes # (Auto) 2.5 x10^3/uL (1.0-4.8) Monocytes # (Auto) 0.5 x10^3/uL (0.0-1.1) Eosinophils # (Auto) 0.1 x10^3/uL (0.0-0.7) Basophils # (Auto) 0.1 x10^3/uL (0.0-0.2) Prothrombin Time 12.9 SEC (11.7-14.0) Prothromb Time International Ratio 1.0 (0.8-1.1) Sodium Level 142 mmol/L (136-145) Potassium Level 4.3 mmol/L (3.5-5.1) Chloride Level 107 mmol/L (98-107) Carbon Dioxide Level 26 mmol/L (21-32) Anion Gap 9 (6-14) Blood Urea Nitrogen 11 mg/dL (7-20) Creatinine 0.9 mg/dL (0.6-1.0) Estimated GFR (Cockcroft-Gault) 76.9 BUN/Creatinine Ratio 12 (6-20) Glucose Level 93 mg/dL (70-99) Calcium Level 8.5 mg/dL (8.5-10.1) Total Bilirubin 0.4 mg/dL (0.2-1.0) Aspartate Amino Transf (AST/SGOT) 22 U/L (15-37) Alanine Aminotransferase (ALT/SGPT) 32 U/L (14-59) Alkaline Phosphatase 69 U/L (46-116) Total Protein 7.5 g/dL (6.4-8.2) Albumin 4.0 g/dL (3.4-5.0) Albumin/Globulin Ratio 1.1 (1.0-1.7) Lipase 130 U/L (73-393) Assessment and Plan Assessmemt and Plan Problems Medical Problems: (1) Acute appendicitis Status: Acute Comment Review of Relevant I have reviewed the following items william (where applicable) has been applied. Labs Laboratory Tests Test 02/17/19 14:18 02/17/19 14:21 02/17/19 14:50 Urine Collection Type Void Urine Color Yellow Urine Clarity Clear Urine pH 6.0 Urine Specific [place] 1.015 Urine Protein Negative mg/dL (NEG-TRACE) Urine Glucose (UA) Negative mg/dL (NEG) Urine Ketones (Stick) Negative mg/dL (NEG) Urine Blood Negative (NEG) Urine Nitrite Negative (NEG) Urine Bilirubin Negative (NEG) Urine Urobilinogen Dipstick 0.2 mg/dL (0.2 mg/dL) Urine Leukocyte Esterase Trace (NEG) Urine RBC 0 /HPF (0-2) Urine WBC 0 /HPF (0-4) Urine Squamous Epithelial Cells Few /LPF Urine Bacteria 0 /HPF (0-FEW) Urine Mucus Slight /LPF Bedside Urine HCG, Qualitative Hcg negative (Negative) White Blood Count 10.0 x10^3/uL (4.0-11.0) Red Blood Count 5.14 x10^6/uL (3.50-5.40) Hemoglobin 14.4 g/dL (12.0-15.5) Hematocrit 43.6 % (36.0-47.0) Mean Corpuscular Volume 85 fL (79-100) Mean Corpuscular Hemoglobin 28 pg (25-35) Mean Corpuscular Hemoglobin Concent 33 g/dL (31-37) Red Cell Distribution Width 13.7 % (11.5-14.5) Platelet Count 245 x10^3/uL (140-400) Neutrophils (%) (Auto) 69 % (31-73) Lymphocytes (%) (Auto) 25 % (24-48) Monocytes (%) (Auto) 5 % (0-9) Eosinophils (%) (Auto) 1 % (0-3) Basophils (%) (Auto) 1 % (0-3) Neutrophils # (Auto) 6.9 x10^3/uL (1.8-7.7) Lymphocytes # (Auto) 2.5 x10^3/uL (1.0-4.8) Monocytes # (Auto) 0.5 x10^3/uL (0.0-1.1) Eosinophils # (Auto) 0.1 x10^3/uL (0.0-0.7) Basophils # (Auto) 0.1 x10^3/uL (0.0-0.2) Prothrombin Time 12.9 SEC (11.7-14.0) Prothromb Time International Ratio 1.0 (0.8-1.1) Sodium Level 142 mmol/L (136-145) Potassium Level 4.3 mmol/L (3.5-5.1) Chloride Level 107 mmol/L (98-107) Carbon Dioxide Level 26 mmol/L (21-32) Anion Gap 9 (6-14) Blood Urea Nitrogen 11 mg/dL (7-20) Creatinine 0.9 mg/dL (0.6-1.0) Estimated GFR (Cockcroft-Gault) 76.9 BUN/Creatinine Ratio 12 (6-20) Glucose Level 93 mg/dL (70-99) Calcium Level 8.5 mg/dL (8.5-10.1) Total Bilirubin 0.4 mg/dL (0.2-1.0) Aspartate Amino Transf (AST/SGOT) 22 U/L (15-37) Alanine Aminotransferase (ALT/SGPT) 32 U/L (14-59) Alkaline Phosphatase 69 U/L (46-116) Total Protein 7.5 g/dL (6.4-8.2) Albumin 4.0 g/dL (3.4-5.0) Albumin/Globulin Ratio 1.1 (1.0-1.7) Lipase 130 U/L (73-393) Laboratory Tests Test 02/17/19 14:18 02/17/19 14:21 02/17/19 14:50 Urine Collection Type Void Urine Color Yellow Urine Clarity Clear Urine pH 6.0 Urine Specific [place] 1.015 Urine Protein Negative mg/dL (NEG-TRACE) Urine Glucose (UA) Negative mg/dL (NEG) Urine Ketones (Stick) Negative mg/dL (NEG) Urine Blood Negative (NEG) Urine Nitrite Negative (NEG) Urine Bilirubin Negative (NEG) Urine Urobilinogen Dipstick 0.2 mg/dL (0.2 mg/dL) Urine Leukocyte Esterase Trace (NEG) Urine RBC 0 /HPF (0-2) Urine WBC 0 /HPF (0-4) Urine Squamous Epithelial Cells Few /LPF Urine Bacteria 0 /HPF (0-FEW) Urine Mucus Slight /LPF Bedside Urine HCG, Qualitative Hcg negative (Negative) White Blood Count 10.0 x10^3/uL (4.0-11.0) Red Blood Count 5.14 x10^6/uL (3.50-5.40) Hemoglobin 14.4 g/dL (12.0-15.5) Hematocrit 43.6 % (36.0-47.0) Mean Corpuscular Volume 85 fL (79-100) Mean Corpuscular Hemoglobin 28 pg (25-35) Mean Corpuscular Hemoglobin Concent 33 g/dL (31-37) Red Cell Distribution Width 13.7 % (11.5-14.5) Platelet Count 245 x10^3/uL (140-400) Neutrophils (%) (Auto) 69 % (31-73) Lymphocytes (%) (Auto) 25 % (24-48) Monocytes (%) (Auto) 5 % (0-9) Eosinophils (%) (Auto) 1 % (0-3) Basophils (%) (Auto) 1 % (0-3) Neutrophils # (Auto) 6.9 x10^3/uL (1.8-7.7) Lymphocytes # (Auto) 2.5 x10^3/uL (1.0-4.8) Monocytes # (Auto) 0.5 x10^3/uL (0.0-1.1) Eosinophils # (Auto) 0.1 x10^3/uL (0.0-0.7) Basophils # (Auto) 0.1 x10^3/uL (0.0-0.2) Prothrombin Time 12.9 SEC (11.7-14.0) Prothromb Time International Ratio 1.0 (0.8-1.1) Sodium Level 142 mmol/L (136-145) Potassium Level 4.3 mmol/L (3.5-5.1) Chloride Level 107 mmol/L (98-107) Carbon Dioxide Level 26 mmol/L (21-32) Anion Gap 9 (6-14) Blood Urea Nitrogen 11 mg/dL (7-20) Creatinine 0.9 mg/dL (0.6-1.0) Estimated GFR (Cockcroft-Gault) 76.9 BUN/Creatinine Ratio 12 (6-20) Glucose Level 93 mg/dL (70-99) Calcium Level 8.5 mg/dL (8.5-10.1) Total Bilirubin 0.4 mg/dL (0.2-1.0) Aspartate Amino Transf (AST/SGOT) 22 U/L (15-37) Alanine Aminotransferase (ALT/SGPT) 32 U/L (14-59) Alkaline Phosphatase 69 U/L (46-116) Total Protein 7.5 g/dL (6.4-8.2) Albumin 4.0 g/dL (3.4-5.0) Albumin/Globulin Ratio 1.1 (1.0-1.7) Lipase 130 U/L (73-393) Medications Current Medications Ondansetron HCl (Zofran) 4 mg STK-MED ONCE .ROUTE ; Start 02/17/19 at 14:17; Stop 02/17/19 at 14:17; Status DC Ondansetron HCl (Zofran) 4 mg 1X ONCE IV Last administered on 02/17/19at 14:30; Start 02/17/19 at 14:30; Stop 02/17/19 at 14:34; Status DC Ondansetron HCl (Zofran) 4 mg 1X ONCE IV ; Start 02/17/19 at 14:30; Stop 02/17/19 at 14:34; Status DC Sodium Chloride 1,000 ml @ 1,000 mls/hr 1X ONCE IV Last administered on 02/17/19at 14:30; Start 02/17/19 at 14:30; Stop 02/17/19 at 15:29; Status DC Morphine Sulfate (Morphine Sulfate) 4 mg 1X ONCE IV Last administered on 02/17/19at 15:10; Start 02/17/19 at 15:15; Stop 02/17/19 at 15:16; Status DC Iohexol (Omnipaque 300 Mg/ml) 75 ml 1X ONCE IV Last administered on 02/17/19at 15:56; Start 02/17/19 at 15:45; Stop 02/17/19 at 15:46; Status DC Info (CONTRAST GIVEN -- Rx MONITORING) 1 each PRN DAILY PRN MC SEE COMMENTS; Start 02/17/19 at 15:45; Stop 02/19/19 at 15:44 Morphine Sulfate (Morphine Sulfate) 4 mg 1X ONCE IV Last administered on 02/17/19at 17:25; Start 02/17/19 at 17:00; Stop 02/17/19 at 17:05; Status DC Ondansetron HCl (Zofran) 4 mg 1X ONCE IV Last administered on 02/17/19at 17:24; Start 02/17/19 at 17:30; Stop 02/17/19 at 17:31; Status DC Piperacillin Sod/ Tazobactam Sod 3.375 gm/Sodium Chloride 50 ml @ 100 mls/hr 1X ONCE IV Last administered on 02/17/19at 17:29; Start 02/17/19 at 17:30; Stop 02/17/19 at 17:59; Status DC Morphine Sulfate (Morphine Sulfate) 2 mg PRN Q2HR PRN IV MODERATE PAIN Last administered on 02/18/19at 06:09; Start 02/17/19 at 17:45 Ondansetron HCl (Zofran) 4 mg PRN Q6HRS PRN IVP NAUSEA/VOMITING Last adm inistered on 02/17/19at 20:39; Start 02/17/19 at 17:45 Fentanyl Citrate (Fentanyl 2ml Vial) 50 mcg PRN Q2HR PRN IVP SEVERE PAIN Last administered on 02/18/19at 08:02; Start 02/17/19 at 17:45 Nicotine (Nicoderm Cq 21mg) 1 patch PRN DAILY PRN TD SMOKING CESSATION; Start 02/17/19 at 17:45 Sodium Chloride 1,000 ml @ 100 mls/hr Q10H IV Last administered on 02/18/19at 06:10; Start 02/17/19 at 17:45 Prochlorperazine Edisylate (Compazine) 10 mg PRN Q6HRS PRN IM NAUSEA/VOMITING Last administered on 02/17/19at 22:45; Start 02/17/19 at 22:00 Ondansetron HCl (Zofran) 4 mg PRN Q6HRS PRN IV NAUSEA/VOMITING; Start 02/18/19 at 08:30; Stop 02/19/19 at 08:29 Fentanyl Citrate (Fentanyl 2ml Vial) 25 mcg PRN Q5MIN PRN IV MILD PAIN 1-3; Start 02/18/19 at 08:30; Stop 02/19/19 at 08:29 Fentanyl Citrate (Fentanyl 2ml Vial) 50 mcg PRN Q5MIN PRN IV MODERATE TO SEVERE PAIN; Start 02/18/19 at 08:30; Stop 02/19/19 at 08:29 Morphine Sulfate (Morphine Sulfate) 1 mg PRN Q10MIN PRN IV SEVERE PAIN 7-10; Start 02/18/19 at 08:30; Stop 02/19/19 at 08:29 Ringer's Solution 1,000 ml @ 30 mls/hr Q24H IV ; Start 02/18/19 at 08:20; Stop 02/18/19 at 20:19 Hydromorphone HCl (Dilaudid) 0.5 mg PRN Q10MIN PRN IV SEV PAIN, Second choice; Start 02/18/19 at 08:30; Stop 02/19/19 at 08:29 Prochlorperazine Edisylate (Compazine) 5 mg PACU PRN PRN IV NAUSEA, MRX1; Start 02/18/19 at 08:30; Stop 02/19/19 at 08:29 Vitals/I & O Vital Sign - Last 24 Hours 02/17/19 02/17/19 02/17/19 02/17/19 13:25 14:00 15:00 15:10 Temp 97.9 97.9 Pulse 72 74 82 Resp 18 16 16 18 B/P (MAP) 122/77 (92) 114/78 (90) 113/79 (90) Pulse Ox 100 99 97 99 O2 Delivery Room Air Room Air Room Air Room Air 02/17/19 02/17/19 02/17/19 02/17/19 16:00 17:00 17:25 18:00 Pulse 84 80 70 Resp 16 16 16 16 B/P (MAP) 102/68 (79) 110/71 (84) 101/60 (74) Pulse Ox 99 97 98 97 O2 Delivery Room Air Room Air Room Air Room Air 02/17/19 02/17/19 02/17/19 02/17/19 18:55 20:00 20:40 22:52 Temp 98.2 98.2 Pulse 67 Resp 18 20 B/P (MAP) 98/44 (62) Pulse Ox 97 97 97 O2 Delivery Room Air Room Air Room Air 02/17/19 02/17/19 02/18/19 02/18/19 23:05 23:22 03:00 06:09 Temp 98.4 99.5 98.4 99.5 Pulse 81 86 Resp 18 20 18 20 B/P (MAP) 95/59 (71) 86/36 (53) Pulse Ox 100 94 94 94 O2 Delivery Room Air Room Air Room Air Room Air 02/18/19 02/18/19 02/18/19 02/18/19 06:11 08:00 08:00 08:02 Temp 98.8 99.8 98.8 99.8 Pulse 80 Resp 20 B/P (MAP) 96/54 (68) 76/42 (53) Pulse Ox 98 94 O2 Delivery Room Air Room Air Room Air 02/18/19 08:44 Pulse Ox 94 O2 Delivery Room Air Intake and Output 02/17/19 02/17/19 02/18/19 15:00 23:00 07:00 Intake Total 0 ml 0 ml Output Total 300 ml Balance 0 ml -300 ml EVY HAMMER MD Feb 18, 2019 09:51
--- NOTE | 2019-02-18 10:13 | NUR ---
SW following for discharge planning. Chart reviewed, discussed with RN. Pt having a lap appy today. Currently no SW needs. SW will continue to follow should any needs arise.
[2019-02-18] MEDS ORDERED: SUCCINYLCHOLINE 200 MG/10 ML VIAL. ONE (12:30)
[2019-02-18] MEDS ORDERED: ROCURONIUM 50 MG/5 ML VIAL. ONE (12:30)
[2019-02-18] MEDS ORDERED: NEOSTIGMINE 10 MG/10 ML VIAL. ONE (12:30)
[2019-02-18] MEDS ORDERED: LIDOCAINE 2% PF 5 ML VIAL. ONE ×2 (12:31→14:24)
[2019-02-18] MEDS ORDERED: fentaNYL PF VIAL 100 MCG/2 ML VIAL ONE (12:31)
[2019-02-18] MEDS ORDERED: PROPOFOL 20 ML IV ONE (12:31)
[2019-02-18] MEDS ORDERED: ONDANSETRON PF 4 MG/2 ML VIAL. ONE (12:31)
[2019-02-18] MEDS ORDERED: MIDAZOLAM HCL/PF 2 MG/2 ML VIAL. ONE (12:31)
[2019-02-18] MEDS ORDERED: KETOROLAC 30 MG/ML VIAL. ONE (12:31)
[2019-02-18] MEDS ORDERED: DEXAMETHASONE SOD PHOS 4 MG/ML VIAL ONE (12:31)
[2019-02-18] MEDS ORDERED: GLYCOPYRROLATE 1 MG/5 ML VIAL. ONE (12:31)
[2019-02-18] MEDS ORDERED: BUPIVACAINE-EPI 0.5%-1:200000 MPF 30 ML VIAL. INJ ONE (13:15)
[2019-02-18] MEDS ORDERED: cefOXitin SODIUM IV Push 2 GM VIAL. IVP ONE (13:45)
[2019-02-18] MEDS ORDERED: PHENYLEPHRINE in 0.9% NACL PF 1 MG/10 ML SYRINGE. IV ONE (13:49)
[2019-02-18] MEDS ORDERED: ePHEDrine PF IN SALINE 50 MG/10 ML SYRINGE. IV ONE (14:10)
[2019-02-18] MEDS ORDERED: IV NORMAL SALINE 1000ML BAG 1,000 ML IV SCH (14:24)
[2019-02-18] MEDS ORDERED: 0.9 % SODIUM CHLORIDE 10 ML DISP.SYRIN. IV PRN (14:30)
[2019-02-18] MEDS ORDERED: NALOXONE 0.4 MG/ML VIAL. IV PRN (14:30)
--- NOTE | 2019-02-18 14:30 | PDOC4 ---
OPERATIVE NOTE Date: Date: Feb 18, 2019 Pre-Op Diagnosis: Appendicitis Post-Op Diagnosis: same Procedure Performed: Laparoscopic appendectomy Surgeon: Abel Wilson Anesthesia Type: GETA plus local Blood Loss: 50 Specimans Obtained: appendix Findings: indurated appendix with adherence to surrounding structures Complications: none Operative Note: After obtaining informed consent, patient was taken to OR, induced under GETA and prepped in the usual fashion. 5 mm port placed LLQ and suprapubic, 12 port placed in umbilicus, all under laparoscopic guidance. Abdomen cavity was explored and otherwise unremarkable. Appendix was identified off cecum. Bluntly dissected off other structures. Defect created in mesoappendix. General load CHICO taken across base of appendix at level of cecum. Two times vascular loads taken across mesoappendix. Appendix placed in bag, delivered and sent to pathology for evaluation. Additional hemostasis obtained on staple line with clips. Copious irrigation. No evidence of bleeding or other pathology noted. Ports removed without bleeding. Fascia repaired with 0 vicryl. Skin repaired with 4 0 monocryl. Dressing placed. Patient tolerated procedure well and sent to PACU in stable condition. All counts correct. Wound class is 3. NAYELI WILSON MD Feb 18, 2019 14:30
[2019-02-18] MEDS: IV RINGERS,LACTATED 1000ML 1,000 ML IV SCH (15:36)
[2019-02-18] MEDS: HYDROcodone/APAP 5/325MG 1 TAB TABLET PO PRN ×2 (15:37→20:10)
[2019-02-18] MEDS: DOCUSATE SODIUM 100 MG CAPSULE. PO SCH (20:09)
[2019-02-19] MEDS: IV RINGERS,LACTATED 1000ML 1,000 ML IV SCH ×2 (00:24→03:26)
[2019-02-19] MEDS: HYDROcodone/APAP 5/325MG 1 TAB TABLET PO PRN ×3 (03:25→12:25)
[2019-02-19 03:47] VITALS: BP 89/53
[2019-02-19 05:07] LABS: BASO % 0 % (0-3); EOS % 0 % (0-3); HEMATOCRIT 36.7 % (36.0-47.0); HEMOGLOBIN 12.2 g/dL (12.0-15.5); LYMPH # 1.5 x10^3/uL (1.0-4.8); LYMPH % 14 % (24-48); MEAN CORPUSCULAR HEMOGLOBIN 28 pg (25-35); MEAN CORPUSCULAR HGB CONC 33 g/dL (31-37); MEAN CORPUSCULAR VOLUME 84 fL (79-100); MONO # 0.6 x10^3/uL (0.0-1.1); MONO % 5 % (0-9); NEUT # 8.9 x10^3/uL (1.8-7.7); NEUT % 81 % (31-73); PLATELET COUNT 194 x10^3/uL (140-400); RED BLOOD COUNT 4.35 x10^6/uL (3.50-5.40)
[2019-02-19 05:25] LABS: ALBUMIN/GLOBULIN RATIO 1.1 (1.0-1.7); CREATININE 0.7 mg/dL (0.6-1.0); GFR 102.8; POTASSIUM 4.2 mmol/L (3.5-5.1); TOTAL BILIRUBIN 0.8 mg/dL (0.2-1.0); TOTAL PROTEIN 5.8 g/dL (6.4-8.2)
[2019-02-19 07:00] VITALS: BP 103/64
--- NOTE | 2019-02-19 07:33 | PDOC ---
PROGRESS NOTES History of Present Illness History of Present Illness VTE Prophylaxis Ordered VTE Prophylaxis Devices: Yes VTE Pharmacological Prophylaxi: Yes DISCHARGE DX Acute appendicitis on ct , Radiodense material in base of the appendix with dilatation of the appendix up to 1 cm and minimal periappendiceal stranding. Findings concerning for mild or early acute appendicitis. Depression NOS Overweight bMI 28 Allergy to doxy (rash) SMOKER 1/2 PPD PLAn: IVF, pain control, NPO GS Appy 02/18 MEd surg bed TO OR for laparoscopic appendectomy. DUONEBS QID PRN SMOKING CESSATION ENCOURAGED 24 min pt exam D/C PLANNING , chart review, > 50% of time spent with exam, chart review, pt care coordination Vitals Vitals Vital Signs Date Time Temp Pulse Resp B/P (MAP) Pulse Ox O2 Delivery O2 Flow Rate FiO2 02/19/19 04:25 18 97 Room Air 02/19/19 03:47 98.0 80 89/53 (65) 98.0 02/18/19 16:40 10.0 Physical Exam Physical Exam seen in PACU General: Alert, Oriented X3, Cooperative, No acute distress Heart: Regular rate, Normal S1, Normal S2, No murmurs Lungs: Clear Abdomen: Normal bowel sounds, Soft, Other (moderate ttp to RLQ) Extremities: No clubbing, No cyanosis Skin: No rashes, No breakdown Labs LABS Laboratory Tests Test 02/19/19 04:45 White Blood Count 11.0 x10^3/uL (4.0-11.0) Red Blood Count 4.35 x10^6/uL (3.50-5.40) Hemoglobin 12.2 g/dL (12.0-15.5) Hematocrit 36.7 % (36.0-47.0) Mean Corpuscular Volume 84 fL (79-100) Mean Corpuscular Hemoglobin 28 pg (25-35) Mean Corpuscular Hemoglobin Concent 33 g/dL (31-37) Red Cell Distribution Width 13.0 % (11.5-14.5) Platelet Count 194 x10^3/uL (140-400) Neutrophils (%) (Auto) 81 % (31-73) Lymphocytes (%) (Auto) 14 % (24-48) Monocytes (%) (Auto) 5 % (0-9) Eosinophils (%) (Auto) 0 % (0-3) Basophils (%) (Auto) 0 % (0-3) Neutrophils # (Auto) 8.9 x10^3/uL (1.8-7.7) Lymphocytes # (Auto) 1.5 x10^3/uL (1.0-4.8) Monocytes # (Auto) 0.6 x10^3/uL (0.0-1.1) Eosinophils # (Auto) 0.0 x10^3/uL (0.0-0.7) Basophils # (Auto) 0.0 x10^3/uL (0.0-0.2) Sodium Level 141 mmol/L (136-145) Potassium Level 4.2 mmol/L (3.5-5.1) Chloride Level 107 mmol/L (98-107) Carbon Dioxide Level 23 mmol/L (21-32) Anion Gap 11 (6-14) Blood Urea Nitrogen 7 mg/dL (7-20) Creatinine 0.7 mg/dL (0.6-1.0) Estimated GFR (Cockcroft-Gault) 102.8 BUN/Creatinine Ratio 10 (6-20) Glucose Level 81 mg/dL (70-99) Calcium Level 8.0 mg/dL (8.5-10.1) Total Bilirubin 0.8 mg/dL (0.2-1.0) Aspartate Amino Transf (AST/SGOT) 89 U/L (15-37) Alanine Aminotransferase (ALT/SGPT) 125 U/L (14-59) Alkaline Phosphatase 92 U/L (46-116) Total Protein 5.8 g/dL (6.4-8.2) Albumin 3.0 g/dL (3.4-5.0) Albumin/Globulin Ratio 1.1 (1.0-1.7) Assessment and Plan Assessmemt and Plan Problems Medical Problems: (1) Acute appendicitis Status: Acute Comment Review of Relevant I have reviewed the following items william (where applicable) has been applied. Labs Laboratory Tests Test 02/17/19 14:18 02/17/19 14:21 02/17/19 14:50 02/19/19 04:45 Urine Collection Type Void Urine Color Yellow Urine Clarity Clear Urine pH 6.0 Urine Specific [place] 1.015 Urine Protein Negative mg/dL (NEG-TRACE) Urine Glucose (UA) Negative mg/dL (NEG) Urine Ketones (Stick) Negative mg/dL (NEG) Urine Blood Negative (NEG) Urine Nitrite Negative (NEG) Urine Bilirubin Negative (NEG) Urine Urobilinogen Dipstick 0.2 mg/dL (0.2 mg/dL) Urine Leukocyte Esterase Trace (NEG) Urine RBC 0 /HPF (0-2) Urine WBC 0 /HPF (0-4) Urine Squamous Epithelial Cells Few /LPF Urine Bacteria 0 /HPF (0-FEW) Urine Mucus Slight /LPF Bedside Urine HCG, Qualitative Hcg negative (Negative) White Blood Count 10.0 x10^3/uL (4.0-11.0) 11.0 x10^3/uL (4.0-11.0) Red Blood Count 5.14 x10^6/uL (3.50-5.40) 4.35 x10^6/uL (3.50-5.40) Hemoglobin 14.4 g/dL (12.0-15.5) 12.2 g/dL (12.0-15.5) Hematocrit 43.6 % (36.0-47.0) 36.7 % (36.0-47.0) Mean Corpuscular Volume 85 fL (79-100) 84 fL (79-100) Mean Corpuscular Hemoglobin 28 pg (25-35) 28 pg (25-35) Mean Corpuscular Hemoglobin Concent 33 g/dL (31-37) 33 g/dL (31-37) Red Cell Distribution Width 13.7 % (11.5-14.5) 13.0 % (11.5-14.5) Platelet Count 245 x10^3/uL (140-400) 194 x10^3/uL (140-400) Neutrophils (%) (Auto) 69 % (31-73) 81 % (31-73) Lymphocytes (%) (Auto) 25 % (24-48) 14 % (24-48) Monocytes (%) (Auto) 5 % (0-9) 5 % (0-9) Eosinophils (%) (Auto) 1 % (0-3) 0 % (0-3) Basophils (%) (Auto) 1 % (0-3) 0 % (0-3) Neutrophils # (Auto) 6.9 x10^3/uL (1.8-7.7) 8.9 x10^3/uL (1.8-7.7) Lymphocytes # (Auto) 2.5 x10^3/uL (1.0-4.8) 1.5 x10^3/uL (1.0-4.8) Monocytes # (Auto) 0.5 x10^3/uL (0.0-1.1) 0.6 x10^3/uL (0.0-1.1) Eosinophils # (Auto) 0.1 x10^3/uL (0.0-0.7) 0.0 x10^3/uL (0.0-0.7) Basophils # (Auto) 0.1 x10^3/uL (0.0-0.2) 0.0 x10^3/uL (0.0-0.2) Prothrombin Time 12.9 SEC (11.7-14.0) Prothromb Time International Ratio 1.0 (0.8-1.1) Sodium Level 142 mmol/L (136-145) 141 mmol/L (136-145) Potassium Level 4.3 mmol/L (3.5-5.1) 4.2 mmol/L (3.5-5.1) Chloride Level 107 mmol/L (98-107) 107 mmol/L (98-107) Carbon Dioxide Level 26 mmol/L (21-32) 23 mmol/L (21-32) Anion Gap 9 (6-14) 11 (6-14) Blood Urea Nitrogen 11 mg/dL (7-20) 7 mg/dL (7-20) Creatinine 0.9 mg/dL (0.6-1.0) 0.7 mg/dL (0.6-1.0) Estimated GFR (Cockcroft-Gault) 76.9 102.8 BUN/Creatinine Ratio 12 (6-20) 10 (6-20) Glucose Level 93 mg/dL (70-99) 81 mg/dL (70-99) Calcium Level 8.5 mg/dL (8.5-10.1) 8.0 mg/dL (8.5-10.1) Total Bilirubin 0.4 mg/dL (0.2-1.0) 0.8 mg/dL (0.2-1.0) Aspartate Amino Transf (AST/SGOT) 22 U/L (15-37) 89 U/L (15-37) Alanine Aminotransferase (ALT/SGPT) 32 U/L (14-59) 125 U/L (14-59) Alkaline Phosphatase 69 U/L (46-116) 92 U/L (46-116) Total Protein 7.5 g/dL (6.4-8.2) 5.8 g/dL (6.4-8.2) Albumin 4.0 g/dL (3.4-5.0) 3.0 g/dL (3.4-5.0) Albumin/Globulin Ratio 1.1 (1.0-1.7) 1.1 (1.0-1.7) Lipase 130 U/L (73-393) Laboratory Tests Test 02/19/19 04:45 White Blood Count 11.0 x10^3/uL (4.0-11.0) Red Blood Count 4.35 x10^6/uL (3.50-5.40) Hemoglobin 12.2 g/dL (12.0-15.5) Hematocrit 36.7 % (36.0-47.0) Mean Corpuscular Volume 84 fL (79-100) Mean Corpuscular Hemoglobin 28 pg (25-35) Mean Corpuscular Hemoglobin Concent 33 g/dL (31-37) Red Cell Distribution Width 13.0 % (11.5-14.5) Platelet Count 194 x10^3/uL (140-400) Neutrophils (%) (Auto) 81 % (31-73) Lymphocytes (%) (Auto) 14 % (24-48) Monocytes (%) (Auto) 5 % (0-9) Eosinophils (%) (Auto) 0 % (0-3) Basophils (%) (Auto) 0 % (0-3) Neutrophils # (Auto) 8.9 x10^3/uL (1.8-7.7) Lymphocytes # (Auto) 1.5 x10^3/uL (1.0-4.8) Monocytes # (Auto) 0.6 x10^3/uL (0.0-1.1) Eosinophils # (Auto) 0.0 x10^3/uL (0.0-0.7) Basophils # (Auto) 0.0 x10^3/uL (0.0-0.2) Sodium Level 141 mmol/L (136-145) Potassium Level 4.2 mmol/L (3.5-5.1) Chloride Level 107 mmol/L (98-107) Carbon Dioxide Level 23 mmol/L (21-32) Anion Gap 11 (6-14) Blood Urea Nitrogen 7 mg/dL (7-20) Creatinine 0.7 mg/dL (0.6-1.0) Estimated GFR (Cockcroft-Gault) 102.8 BUN/Creatinine Ratio 10 (6-20) Glucose Level 81 mg/dL (70-99) Calcium Level 8.0 mg/dL (8.5-10.1) Total Bilirubin 0.8 mg/dL (0.2-1.0) Aspartate Amino Transf (AST/SGOT) 89 U/L (15-37) Alanine Aminotransferase (ALT/SGPT) 125 U/L (14-59) Alkaline Phosphatase 92 U/L (46-116) Total Protein 5.8 g/dL (6.4-8.2) Albumin 3.0 g/dL (3.4-5.0) Albumin/Globulin Ratio 1.1 (1.0-1.7) Medications Current Medications Ondansetron HCl (Zofran) 4 mg STK-MED ONCE .ROUTE ; Start 02/17/19 at 14:17; Stop 02/17/19 at 14:17; Status DC Ondansetron HCl (Zofran) 4 mg 1X ONCE IV Last administered on 02/17/19at 14:30; Start 02/17/19 at 14:30; Stop 02/17/19 at 14:34; Status DC Ondansetron HCl (Zofran) 4 mg 1X ONCE IV ; Start 02/17/19 at 14:30; Stop 02/17/19 at 14:34; Status DC Sodium Chloride 1,000 ml @ 1,000 mls/hr 1X ONCE IV Last administered on 02/17/19at 14:30; Start 02/17/19 at 14:30; Stop 02/17/19 at 15:29; Status DC Morphine Sulfate (Morphine Sulfate) 4 mg 1X ONCE IV Last administered on 02/17/19at 15:10; Start 02/17/19 at 15:15; Stop 02/17/19 at 15:16; Status DC Iohexol (Omnipaque 300 Mg/ml) 75 ml 1X ONCE IV Last administered on 02/17/19at 15:56; Start 02/17/19 at 15:45; Stop 02/17/19 at 15:46; Status DC Info (CONTRAST GIVEN -- Rx MONITORING) 1 each PRN DAILY PRN MC SEE COMMENTS; Start 02/17/19 at 15:45; Stop 02/19/19 at 15:44 Morphine Sulfate (Morphine Sulfate) 4 mg 1X ONCE IV Last administered on 02/17/19at 17:25; Start 02/17/19 at 17:00; Stop 02/17/19 at 17:05; Status DC Ondansetron HCl (Zofran) 4 mg 1X ONCE IV Last administered on 02/17/19at 17:24; Start 02/17/19 at 17:30; Stop 02/17/19 at 17:31; Status DC Piperacillin Sod/ Tazobactam Sod 3.375 gm/Sodium Chloride 50 ml @ 100 mls/hr 1X ONCE IV Last administered on 02/17/19at 17:29; Start 02/17/19 at 17:30; Stop 02/17/19 at 17:59; Status DC Morphine Sulfate (Morphine Sulfate) 2 mg PRN Q2HR PRN IV MODERATE PAIN Last administered on 02/18/19 23:18; Start 02/17/19 at 17:45 Ondansetron HCl (Zofran) 4 mg PRN Q6HRS PRN IVP NAUSEA/VOMITING Last administered on 02/17/19 20:39; Start 02/17/19 at 17:45 Fentanyl Citrate (Fentanyl 2ml Vial) 50 mcg PRN Q2HR PRN IVP SEVERE PAIN Last administered on 02/18/19at 11:49; Start 02/17/19 at 17:45 Nicotine (Nicoderm Cq 21mg) 1 patch PRN DAILY PRN TD SMOKING CESSATION; Start 02/17/19 at 17:45 Sodium Chloride 1,000 ml @ 100 mls/hr Q10H IV Last administered on 02/18/19at 23:18; Start 02/17/19 at 17:45 Prochlorperazine Edisylate (Compazine) 10 mg PRN Q6HRS PRN IM NAUSEA/VOMITING Last administered on 10/22/19at 22:45; Start 02/17/19 at 22:00 Ondansetron HCl (Zofran) 4 mg PRN Q6HRS PRN IV NAUSEA/VOMITING; Start 02/18/19 at 08:30; Stop 02/18/19 at 18:00; Status DC Fentanyl Citrate (Fentanyl 2ml Vial) 25 mcg PRN Q5MIN PRN IV MILD PAIN 1-3; Start 02/18/19 at 08:30; Stop 02/18/19 at 18:00; Status DC Fentanyl Citrate (Fentanyl 2ml Vial) 50 mcg PRN Q5MIN PRN IV MODERATE TO SEVERE PAIN; Start 02/18/19 at 08:30; Stop 02/18/19 at 18:00; Status DC Morphine Sulfate (Morphine Sulfate) 1 mg PRN Q10MIN PRN IV SEVERE PAIN 7-10; Start 02/18/19 at 08:30; Stop 02/18/19 at 18:00; Status DC Ringer's Solution 1,000 ml @ 30 mls/hr Q24H IV ; Start 02/18/19 at 08:20; Stop 02/18/19 at 15:55; Status DC Hydromorphone HCl (Dilaudid) 0.5 mg PRN Q10MIN PRN IV SEV PAIN, Second choice; Start 02/18/19 at 08:30; Stop 02/18/19 at 18:00; Status DC Prochlorperazine Edisylate (Compazine) 5 mg PACU PRN PRN IV NAUSEA, MRX1; Start 02/18/19 at 08:30; Stop 02/18/19 at 18:00; Status DC Succinylcholine Chloride (Anectine) 200 mg STK-MED ONCE .ROUTE ; Start 02/18/19 at 12:30; Stop 02/18/19 at 12:31; Status DC Neostigmine Methylsulfate (Bloxiverz) 10 mg STK-MED ONCE .ROUTE ; Start 02/18/19 at 12:30; Stop 02/18/19 at 12:31; Status DC Rocuronium [place] (Zemuron) 50 mg STK-MED ONCE .ROUTE ; Start 02/18/19 at 12:30; Stop 02/18/19 at 12:31; Status DC Fentanyl Citrate (Fentanyl 2ml Vial) 100 mcg STK-MED ONCE .ROUTE ; Start 02/18/19 at 12:31; Stop 02/18/19 at 12:31; Status DC Midazolam HCl (Versed) 2 mg STK-MED ONCE .ROUTE ; Start 02/18/19 at 12:31; Stop 02/18/19 at 12:31; Status DC Glycopyrrolate (Robinul) 1 mg STK-MED ONCE .ROUTE ; Start 02/18/19 at 12:31; Stop 02/18/19 at 12:31; Status DC Propofol 20 ml @ As Directed STK-MED ONCE IV ; Start 02/18/19 at 12:31; Stop 02/18/19 at 12:31; Status DC Ondansetron HCl (Zofran) 4 mg STK-MED ONCE .ROUTE ; Start 02/18/19 at 12:31; Stop 02/18/19 at 12:31; Status DC Dexamethasone Sodium Phosphate (Decadron) 4 mg STK-MED ONCE .ROUTE ; Start 02/18/19 at 12:31; Stop 02/18/19 at 12:31; Status DC Lidocaine HCl (Lidocaine Pf 2% Vial) 5 ml STK-MED ONCE .ROUTE ; Start 02/18/19 at 12:31; Stop 02/18/19 at 12:31; Status DC Ketorolac Tromethamine (Toradol 30mg Vial) 30 mg STK-MED ONCE .ROUTE ; Start 02/18/19 at 12:31; Stop 02/18/19 at 12:31; Status DC Bupivacaine HCl/ Epinephrine Bitart (Sensorcain-Epi 0.5%-1:[id number] Mpf) 30 ml 1X ONCE INJ Last administered on 02/18/19at 14:02; Start 02/18/19 at 13:15; Stop 02/18/19 at 13:16; Status DC Cefoxitin Sodium (Mefoxin) 2 gm 1X ONCE IVP ; Start 02/18/19 at 13:45; Stop 02/18/19 at 13:46; Status DC Phenylephrine HCl (PHENYLEPHRINE in 0.9% NACL PF) 1 mg STK-MED ONCE IV ; Start 02/18/19 at 13:49; Stop 02/18/19 at 13:50; Status DC Ephedrine Sulfate (ePHEDrine PF IN SALINE SYRINGE) 50 mg STK-MED ONCE IV ; Start 02/18/19 at 14:10; Stop 02/18/19 at 14:10; Status DC Lidocaine HCl (Lidocaine Pf 2% Vial) 5 ml STK-MED ONCE .ROUTE ; Start 02/18/19 at 14:24; Stop 02/18/19 at 14:24; Status DC Enoxaparin Sodium (Lovenox 40mg Syringe) 40 mg Q24H SQ ; Start 02/19/19 at 08:00 Sodium Chloride (Normal Saline Flush) 3 ml QSHIFT PRN IV AFTER MEDS AND BLOOD DRAWS; Start 02/18/19 at 14:30 Ringer's Solution 1,000 ml @ 100 mls/hr Q10H IV Last administered on 02/19/19at 03:26; Start 02/18/19 at 14:24 Acetaminophen/ Hydrocodone Bitart (Lortab 5/325) 1 tab PRN Q4HRS PRN PO MILD PAIN 1-3 Last administered on 02/19/19at 03:25; Start 02/18/19 at 14:30 Naloxone HCl (Narcan) 0.4 mg PRN Q2MIN PRN IV SEE INSTRUCTIONS; Start 02/18/19 at 14:30 Sodium Chloride 1,000 ml @ 25 mls/hr Q24H IV ; Start 02/18/19 at 14:24; Status UNV Docusate Sodium (Colace) 100 mg BID PO Last administered on 02/18/19at 20:09; Start 02/18/19 at 21:00 Ondansetron HCl (Zofran) 4 mg PRN Q6HRS PRN IV NAUESA, 1ST CHOICE; Start 02/18/19 at 14:30; Status Cancel Vitals/I & O Vital Sign - Last 24 Hours 02/18/19 02/18/19 02/18/19 02/18/19 08:00 08:00 08:02 08:44 Temp 99.8 99.8 Pulse 80 Resp 20 B/P (MAP) 76/42 (53) Pulse Ox 98 94 94 O2 Delivery Room Air Room Air Room Air Room Air 02/18/19 02/18/19 02/18/19 02/18/19 10:09 10:39 11:00 11:49 Temp 99.0 99.0 Pulse 72 Resp 20 B/P (MAP) 92/56 (68) Pulse Ox 94 94 97 97 O2 Delivery Room Air Room Air Room Air Room Air 02/18/19 02/18/19 02/18/19 02/18/19 12:55 13:03 14:32 14:32 Temp 97.8 98.5 97.8 98.5 Pulse 84 66 Resp 16 16 B/P (MAP) 90/61 115/45 Pulse Ox 97 99 O2 Delivery Room Air Room Air Simple Mask Mask O2 Flow Rate 10 10 02/18/19 02/18/19 02/18/19 02/18/19 14:45 15:00 15:03 15:15 Temp 98.2 98.2 Pulse 69 76 75 Resp 16 16 16 B/P (MAP) 106/45 106/59 112/54 Pulse Ox 96 96 97 O2 Delivery Room Air Room Air Room Air Room Air 02/18/19 02/18/19 02/18/19 02/18/19 15:30 15:37 15:45 16:00 Pulse 69 92 78 B/P (MAP) 88/55 (66) 87/50 (62) 91/52 (65) Pulse Ox 97 O2 Delivery Room Air O2 Flow Rate 10.0 02/18/19 02/18/19 02/18/19 02/18/19 16:15 16:30 16:40 16:45 Pulse 78 97 94 B/P (MAP) 100/58 (72) 92/45 (61) 95/56 (69) Pulse Ox 97 O2 Delivery Room Air O2 Flow Rate 10.0 02/18/19 02/18/19 02/18/19 02/18/19 17:00 19:37 20:00 20:10 Temp 97.8 97.8 Pulse 101 62 Resp 18 20 B/P (MAP) 102/60 (74) 78/40 (53) Pulse Ox 98 98 O2 Delivery Room Air Room Air Room Air 02/18/19 02/18/19 02/18/19 02/18/19 20:13 21:10 23:18 23:26 Temp 98.0 98.0 Pulse 62 Resp 20 20 18 B/P (MAP) 94/52 (66) 96/63 (74) Pulse Ox 98 97 O2 Delivery Room Air Room Air Room Air 02/18/19 02/19/19 02/19/19 02/19/19 23:48 03:25 03:47 04:25 Temp 98.0 98.0 Pulse 80 Resp 20 20 18 18 B/P (MAP) 89/53 (65) Pulse Ox 97 97 97 97 O2 Delivery Room Air Room Air Room Air Room Air Intake and Output 02/18/19 02/18/19 02/19/19 15:00 23:00 07:00 Intake Total 900 ml 0 ml 300 ml Output Total 350 ml 1200 ml Balance 550 ml -1200 ml 300 ml EVY HAMMER MD Feb 19, 2019 07:33
[2019-02-19] MEDS: DOCUSATE SODIUM 100 MG CAPSULE. PO SCH (07:41)
[2019-02-19] MEDS ORDERED: ENOXAPARIN 40 MG/0.4 ML SYRINGE. SQ SCH (08:00)
[2019-02-19] MEDS ORDERED: DOCU100C28 PO (10:13)
[2019-02-19] MEDS ORDERED: HYDR-2761 PO (10:13)
--- NOTE | 2019-02-19 10:16 | PDOC ---
SURGICAL PROGRESS NOTE Subjective some reflux today tolerating liquids no n/v sore but improved from preop Vital Signs Vital Signs Date Time Temp Pulse Resp B/P (MAP) Pulse Ox O2 Delivery O2 Flow Rate FiO2 02/19/19 08:45 Room Air 02/19/19 07:00 98.2 87 16 103/64 (77) 99 98.2 02/18/19 16:40 10.0 I&O Intake and Output 02/19/19 07:00 Intake Total 1200 ml Output Total 1550 ml Balance -350 ml Intake Oral 300 ml IV Total 900 ml Output Urine Total 1500 ml Estimated Blood Loss 50 ml # Voids 1 General: Alert, Oriented X3, Cooperative, No acute distress Abdomen: Soft, Other (lap dressings dry) Labs Laboratory Tests Test 02/17/19 14:18 02/17/19 14:21 02/17/19 14:50 02/19/19 04:45 Urine Collection Type Void Urine Color Yellow Urine Clarity Clear Urine pH 6.0 Urine Specific [place] 1.015 Urine Protein Negative mg/dL (NEG-TRACE) Urine Glucose (UA) Negative mg/dL (NEG) Urine Ketones (Stick) Negative mg/dL (NEG) Urine Blood Negative (NEG) Urine Nitrite Negative (NEG) Urine Bilirubin Negative (NEG) Urine Urobilinogen Dipstick 0.2 mg/dL (0.2 mg/dL) Urine Leukocyte Esterase Trace (NEG) Urine RBC 0 /HPF (0-2) Urine WBC 0 /HPF (0-4) Urine Squamous Epithelial Cells Few /LPF Urine Bacteria 0 /HPF (0-FEW) Urine Mucus Slight /LPF Bedside Urine HCG, Qualitative Hcg negative (Negative) White Blood Count 10.0 x10^3/uL (4.0-11.0) 11.0 x10^3/uL (4.0-11.0) Red Blood Count 5.14 x10^6/uL (3.50-5.40) 4.35 x10^6/uL (3.50-5.40) Hemoglobin 14.4 g/dL (12.0-15.5) 12.2 g/dL (12.0-15.5) Hematocrit 43.6 % (36.0-47.0) 36.7 % (36.0-47.0) Mean Corpuscular Volume 85 fL (79-100) 84 fL (79-100) Mean Corpuscular Hemoglobin 28 pg (25-35) 28 pg (25-35) Mean Corpuscular Hemoglobin Concent 33 g/dL (31-37) 33 g/dL (31-37) Red Cell Distribution Width 13.7 % (11.5-14.5) 13.0 % (11.5-14.5) Platelet Count 245 x10^3/uL (140-400) 194 x10^3/uL (140-400) Neutrophils (%) (Auto) 69 % (31-73) 81 % (31-73) Lymphocytes (%) (Auto) 25 % (24-48) 14 % (24-48) Monocytes (%) (Auto) 5 % (0-9) 5 % (0-9) Eosinophils (%) (Auto) 1 % (0-3) 0 % (0-3) Basophils (%) (Auto) 1 % (0-3) 0 % (0-3) Neutrophils # (Auto) 6.9 x10^3/uL (1.8-7.7) 8.9 x10^3/uL (1.8-7.7) Lymphocytes # (Auto) 2.5 x10^3/uL (1.0-4.8) 1.5 x10^3/uL (1.0-4.8) Monocytes # (Auto) 0.5 x10^3/uL (0.0-1.1) 0.6 x10^3/uL (0.0-1.1) Eosinophils # (Auto) 0.1 x10^3/uL (0.0-0.7) 0.0 x10^3/uL (0.0-0.7) Basophils # (Auto) 0.1 x10^3/uL (0.0-0.2) 0.0 x10^3/uL (0.0-0.2) Prothrombin Time 12.9 SEC (11.7-14.0) Prothromb Time International Ratio 1.0 (0.8-1.1) Sodium Level 142 mmol/L (136-145) 141 mmol/L (136-145) Potassium Level 4.3 mmol/L (3.5-5.1) 4.2 mmol/L (3.5-5.1) Chloride Level 107 mmol/L (98-107) 107 mmol/L (98-107) Carbon Dioxide Level 26 mmol/L (21-32) 23 mmol/L (21-32) Anion Gap 9 (6-14) 11 (6-14) Blood Urea Nitrogen 11 mg/dL (7-20) 7 mg/dL (7-20) Creatinine 0.9 mg/dL (0.6-1.0) 0.7 mg/dL (0.6-1.0) Estimated GFR (Cockcroft-Gault) 76.9 102.8 BUN/Creatinine Ratio 12 (6-20) 10 (6-20) Glucose Level 93 mg/dL (70-99) 81 mg/dL (70-99) Calcium Level 8.5 mg/dL (8.5-10.1) 8.0 mg/dL (8.5-10.1) Total Bilirubin 0.4 mg/dL (0.2-1.0) 0.8 mg/dL (0.2-1.0) Aspartate Amino Transf (AST/SGOT) 22 U/L (15-37) 89 U/L (15-37) Alanine Aminotransferase (ALT/SGPT) 32 U/L (14-59) 125 U/L (14-59) Alkaline Phosphatase 69 U/L (46-116) 92 U/L (46-116) Total Protein 7.5 g/dL (6.4-8.2) 5.8 g/dL (6.4-8.2) Albumin 4.0 g/dL (3.4-5.0) 3.0 g/dL (3.4-5.0) Albumin/Globulin Ratio 1.1 (1.0-1.7) 1.1 (1.0-1.7) Lipase 130 U/L (73-393) Laboratory Tests Test 02/19/19 04:45 White Blood Count 11.0 x10^3/uL (4.0-11.0) Red Blood Count 4.35 x10^6/uL (3.50-5.40) Hemoglobin 12.2 g/dL (12.0-15.5) Hematocrit 36.7 % (36.0-47.0) Mean Corpuscular Volume 84 fL (79-100) Mean Corpuscular Hemoglobin 28 pg (25-35) Mean Corpuscular Hemoglobin Concent 33 g/dL (31-37) Red Cell Distribution Width 13.0 % (11.5-14.5) Platelet Count 194 x10^3/uL (140-400) Neutrophils (%) (Auto) 81 % (31-73) Lymphocytes (%) (Auto) 14 % (24-48) Monocytes (%) (Auto) 5 % (0-9) Eosinophils (%) (Auto) 0 % (0-3) Basophils (%) (Auto) 0 % (0-3) Neutrophils # (Auto) 8.9 x10^3/uL (1.8-7.7) Lymphocytes # (Auto) 1.5 x10^3/uL (1.0-4.8) Monocytes # (Auto) 0.6 x10^3/uL (0.0-1.1) Eosinophils # (Auto) 0.0 x10^3/uL (0.0-0.7) Basophils # (Auto) 0.0 x10^3/uL (0.0-0.2) Sodium Level 141 mmol/L (136-145) Potassium Level 4.2 mmol/L (3.5-5.1) Chloride Level 107 mmol/L (98-107) Carbon Dioxide Level 23 mmol/L (21-32) Anion Gap 11 (6-14) Blood Urea Nitrogen 7 mg/dL (7-20) Creatinine 0.7 mg/dL (0.6-1.0) Estimated GFR (Cockcroft-Gault) 102.8 BUN/Creatinine Ratio 10 (6-20) Glucose Level 81 mg/dL (70-99) Calcium Level 8.0 mg/dL (8.5-10.1) Total Bilirubin 0.8 mg/dL (0.2-1.0) Aspartate Amino Transf (AST/SGOT) 89 U/L (15-37) Alanine Aminotransferase (ALT/SGPT) 125 U/L (14-59) Alkaline Phosphatase 92 U/L (46-116) Total Protein 5.8 g/dL (6.4-8.2) Albumin 3.0 g/dL (3.4-5.0) Albumin/Globulin Ratio 1.1 (1.0-1.7) Problem List Problems Medical Problems: (1) Acute appendicitis Status: Acute Assessment/Plan s/p appy ok to dc home Fu 2 weeks HAMZAH LEYVA [employer] Feb 19, 2019 10:16
[2019-02-19 11:00] VITALS: BP 84/51
[2019-02-19] MEDS ORDERED: FAMOTIDINE 20 MG TABLET. PO ONE (11:00)
--- NOTE | 2019-02-19 11:04 | PDOC3 ---
Discharge Summary Date of Admission: Feb 17, 2019 Date of Discharge: Feb 19, 2019 Follow-Up: 3-5 days Admitting Diagnosis comment: DISCHARGE DX Acute appendicitis on ct , Radiodense material in base of the appendix with dilatation of the appendix up to 1 cm and minimal periappendiceal stranding. Findings concerning for mild or early acute appendicitis. Depression NOS Overweight bMI 28 Allergy to doxy (rash) SMOKER 1/2 PPD PLAn: IVF, pain control, NPO GS Appy 02/18 MEd surg bed TO OR for laparoscopic appendectomy. DUONEBS QID PRN SMOKING CESSATION ENCOURAGED 24 min pt exam D/C PLANNING , chart review, > 50% of time spent with exam, chart review, pt care coordination Vitals Vitals Vital Signs ON ROOM AIR Date Time Temp Pulse Resp B/P (MAP) Pulse Ox O2 Delivery O2 Flow Rate FiO2 02/19/19 04:25 18 97 Room Air 02/19/19 03:47 98.0 80 89/53 (65) 98.0 02/18/19 16:40 10.0 Physical Exam Physical Exam seen in PACU General: Alert, Oriented X3, Cooperative, No acute distress Heart: Regular rate, Normal S1, Normal S2, No murmurs Lungs: Clear Abdomen: Normal bowel sounds, Extremities: No clubbing, No cyanosis Skin: No rashes, No breakdown FINAL DIAGNOSIS Problems Medical Problems: (1) Acute appendicitis Status: Acute Brief Hospital Course Ms. Conner is a 23 old [sex] who presented with [ACUTE APPENDICITIS ] CONDITION AT DISCHARGE: Improved Discharge Medications Current Medications Ondansetron HCl (Zofran) 4 mg STK-MED ONCE .ROUTE ; Start 02/17/19 at 14:17; Stop 02/17/19 at 14:17; Status DC Ondansetron HCl (Zofran) 4 mg 1X ONCE IV Last administered on 02/17/19at 14:30; Start 02/17/19 at 14:30; Stop 02/17/19 at 14:34; Status DC Ondansetron HCl (Zofran) 4 mg 1X ONCE IV ; Start 02/17/19 at 14:30; Stop 02/17/19 at 14:34; Status DC Sodium Chloride 1,000 ml @ 1,000 mls/hr 1X ONCE IV Last administered on 02/17/19at 14:30; Start 02/17/19 at 14:30; Stop 02/17/19 at 15:29; Status DC Morphine Sulfate (Morphine Sulfate) 4 mg 1X ONCE IV Last administered on 02/17/19at 15:10; Start 02/17/19 at 15:15; Stop 02/17/19 at 15:16; Status DC Iohexol (Omnipaque 300 Mg/ml) 75 ml 1X ONCE IV Last administered on 02/17/19at 15:56; Start 02/17/19 at 15:45; Stop 02/17/19 at 15:46; Status DC Info (CONTRAST GIVEN -- Rx MONITORING) 1 each PRN DAILY PRN MC SEE COMMENTS; Start 02/17/19 at 15:45; Stop 02/19/19 at 15:44 Morphine Sulfate (Morphine Sulfate) 4 mg 1X ONCE IV Last administered on 02/17/19at 17:25; Start 02/17/19 at 17:00; Stop 02/17/19 at 17:05; Status DC Ondansetron HCl (Zofran) 4 mg 1X ONCE IV Last administered on 02/17/19at 17:24; Start 02/17/19 at 17:30; Stop 02/17/19 at 17:31; Status DC Piperacillin Sod/ Tazobactam Sod 3.375 gm/Sodium Chloride 50 ml @ 100 mls/hr 1X ONCE IV Last administered on 02/17/19at 17:29; Start 02/17/19 at 17:30; Stop 02/17/19 at 17:59; Status DC Morphine Sulfate (Morphine Sulfate) 2 mg PRN Q2HR PRN IV MODERATE PAIN Last administered on 02/18/19at 23:18; Start 02/17/19 at 17:45 Ondansetron HCl (Zofran) 4 mg PRN Q6HRS PRN IVP NAUSEA/VOMITING Last administered on 02/17/19 20:39; Start 02/17/19 at 17:45 Fentanyl Citrate (Fentanyl 2ml Vial) 50 mcg PRN Q2HR PRN IVP SEVERE PAIN Last administered on 02/18/19at 11:49; Start 02/17/19 at 17:45 Nicotine (Nicoderm Cq 21mg) 1 patch PRN DAILY PRN TD SMOKING CESSATION; Start 02/17/19 at 17:45 Sodium Chloride 1,000 ml @ 100 mls/hr Q10H IV Last administered on 02/18/19at 23:18; Start 02/17/19 at 17:45 Prochlorperazine Edisylate (Compazine) 10 mg PRN Q6HRS PRN IM NAUSEA/VOMITING Last administered on 02/17/19at 22:45; Start 02/17/19 at 22:00 Ondansetron HCl (Zofran) 4 mg PRN Q6HRS PRN IV NAUSEA/VOMITING; Start 02/18/19 at 08:30; Stop 02/18/19 at 18:00; Status DC Fentanyl Citrate (Fentanyl 2ml Vial) 25 mcg PRN Q5MIN PRN IV MILD PAIN 1-3; Start 02/18/19 at 08:30; Stop 02/18/19 at 18:00; Status DC Fentanyl Citrate (Fentanyl 2ml Vial) 50 mcg PRN Q5MIN PRN IV MODERATE TO SEVERE PAIN; Start 02/18/19 at 08:30; Stop 02/18/19 at 18:00; Status DC Morphine Sulfate (Morphine Sulfate) 1 mg PRN Q10MIN PRN IV SEVERE PAIN 7-10; Start 02/18/19 at 08:30; Stop 02/18/19 at 18:00; Status DC Ringer's Solution 1,000 ml @ 30 mls/hr Q24H IV ; Start 02/18/19 at 08:20; Stop 02/18/19 at 15:55; Status DC Hydromorphone HCl (Dilaudid) 0.5 mg PRN Q10MIN PRN IV SEV PAIN, Second choice; Start 02/18/19 at 08:30; Stop 02/18/19 at 18:00; Status DC Prochlorperazine Edisylate (Compazine) 5 mg PACU PRN PRN IV NAUSEA, MRX1; Start 02/18/19 at 08:30; Stop 02/18/19 at 18:00; Status DC Succinylcholine Chloride (Anectine) 200 mg STK-MED ONCE .ROUTE ; Start 02/18/19 at 12:30; Stop 02/18/19 at 12:31; Status DC Neostigmine Methylsulfate (Bloxiverz) 10 mg STK-MED ONCE .ROUTE ; Start 02/18/19 at 12:30; Stop 02/18/19 at 12:31; Status DC Rocuronium Lopeno (Zemuron) 50 mg STK-MED ONCE .ROUTE ; Start 02/18/19 at 12:30; Stop 02/18/19 at 12:31; Status DC Fentanyl Citrate (Fentanyl 2ml Vial) 100 mcg STK-MED ONCE .ROUTE ; Start 02/18/19 at 12:31; Stop 02/18/19 at 12:31; Status DC Midazolam HCl (Versed) 2 mg STK-MED ONCE .ROUTE ; Start 02/18/19 at 12:31; Stop 02/18/19 at 12:31; Status DC Glycopyrrolate (Robinul) 1 mg STK-MED ONCE .ROUTE ; Start 02/18/19 at 12:31; Stop 02/18/19 at 12:31; Status DC Propofol 20 ml @ As Directed STK-MED ONCE IV ; Start 02/18/19 at 12:31; Stop 02/18/19 at 12:31; Status DC Ondansetron HCl (Zofran) 4 mg STK-MED ONCE .ROUTE ; Start 02/18/19 at 12:31; Stop 02/18/19 at 12:31; Status DC Dexamethasone Sodium Phosphate (Decadron) 4 mg STK-MED ONCE .ROUTE ; Start 02/18/19 at 12:31; Stop 02/18/19 at 12:31; Status DC Lidocaine HCl (Lidocaine Pf 2% Vial) 5 ml STK-MED ONCE .ROUTE ; Start 02/18/19 at 12:31; Stop 02/18/19 at 12:31; Status DC Ketorolac Tromethamine (Toradol 30mg Vial) 30 mg STK-MED ONCE .ROUTE ; Start 02/18/19 at 12:31; Stop 02/18/19 at 12:31; Status DC Bupivacaine HCl/ Epinephrine Bitart (Sensorcain-Epi 0.5%-1:[id number] Mpf) 30 ml 1X ONCE INJ Last administered on 02/18/19at 14:02; Start 02/18/19 at 13:15; Stop 02/18/19 at 13:16; Status DC Cefoxitin Sodium (Mefoxin) 2 gm 1X ONCE IVP ; Start 02/18/19 at 13:45; Stop 02/18/19 at 13:46; Status DC Phenylephrine HCl (PHENYLEPHRINE in 0.9% NACL PF) 1 mg STK-MED ONCE IV ; Start 02/18/19 at 13:49; Stop 02/18/19 at 13:50; Status DC Ephedrine Sulfate (ePHEDrine PF IN SALINE SYRINGE) 50 mg STK-MED ONCE IV ; Start 02/18/19 at 14:10; Stop 02/18/19 at 14:10; Status DC Lidocaine HCl (Lidocaine Pf 2% Vial) 5 ml STK-MED ONCE .ROUTE ; Start 02/18/19 at 14:24; Stop 02/18/19 at 14:24; Status DC Enoxaparin Sodium (Lovenox 40mg Syringe) 40 mg Q24H SQ ; Start 02/19/19 at 08:00 Sodium Chloride (Normal Saline Flush) 3 ml QSHIFT PRN IV AFTER MEDS AND BLOOD DRAWS; Start 02/18/19 at 14:30 Ringer's Solution 1,000 ml @ 100 mls/hr Q10H IV Last administered on 02/19/19at 03:26; Start 02/18/19 at 14:24 Acetaminophen/ Hydrocodone Bitart (Lortab 5/325) 1 tab PRN Q4HRS PRN PO MILD PAIN 1-3 Last administered on 02/19/19at 07:41; Start 02/18/19 at 14:30 Naloxone HCl (Narcan) 0.4 mg PRN Q2MIN PRN IV SEE INSTRUCTIONS; Start 02/18/19 at 14:30 Sodium Chloride 1,000 ml @ 25 mls/hr Q24H IV ; Start 02/18/19 at 14:24; Status UNV Docusate Sodium (Colace) 100 mg BID PO Last administered on 02/19/19at 07:41; Start 02/18/19 at 21:00 Ondansetron HCl (Zofran) 4 mg PRN Q6HRS PRN IV NAUESA, 1ST CHOICE; Start 02/18/19 at 14:30; Status Cancel Famotidine (Pepcid) 20 mg 1X ONCE PO ; Start 02/19/19 at 11:00; Stop 02/19/19 at 11:01 Active Scripts Active Hydrocodone-Apap 5-325 (Hydrocodone Bit/Acetaminophen) 1 Tab Tablet 1 Tab PO PRN Q4HRS PRN Vital Signs Vital Signs Date Time Temp Pulse Resp B/P (MAP) Pulse Ox O2 Delivery O2 Flow Rate FiO2 02/19/19 08:45 Room Air 02/19/19 07:00 98.2 87 16 103/64 (77) 99 98.2 02/18/19 16:40 10.0 Labs Laboratory Tests Test 02/17/19 14:18 02/17/19 14:21 02/17/19 14:50 02/19/19 04:45 Urine Collection Type Void Urine Color Yellow Urine Clarity Clear Urine pH 6.0 Urine Specific [place] 1.015 Urine Protein Negative mg/dL (NEG-TRACE) Urine Glucose (UA) Negative mg/dL (NEG) Urine Ketones (Stick) Negative mg/dL (NEG) Urine Blood Negative (NEG) Urine Nitrite Negative (NEG) Urine Bilirubin Negative (NEG) Urine Urobilinogen Dipstick 0.2 mg/dL (0.2 mg/dL) Urine Leukocyte Esterase Trace (NEG) Urine RBC 0 /HPF (0-2) Urine WBC 0 /HPF (0-4) Urine Squamous Epithelial Cells Few /LPF Urine Bacteria 0 /HPF (0-FEW) Urine Mucus Slight /LPF Bedside Urine HCG, Qualitative Hcg negative (Negative) White Blood Count 10.0 x10^3/uL (4.0-11.0) 11.0 x10^3/uL (4.0-11.0) Red Blood Count 5.14 x10^6/uL (3.50-5.40) 4.35 x10^6/uL (3.50-5.40) Hemoglobin 14.4 g/dL (12.0-15.5) 12.2 g/dL (12.0-15.5) Hematocrit 43.6 % (36.0-47.0) 36.7 % (36.0-47.0) Mean Corpuscular Volume 85 fL (79-100) 84 fL (79-100) Mean Corpuscular Hemoglobin 28 pg (25-35) 28 pg (25-35) Mean Corpuscular Hemoglobin Concent 33 g/dL (31-37) 33 g/dL (31-37) Red Cell Distribution Width 13.7 % (11.5-14.5) 13.0 % (11.5-14.5) Platelet Count 245 x10^3/uL (140-400) 194 x10^3/uL (140-400) Neutrophils (%) (Auto) 69 % (31-73) 81 % (31-73) Lymphocytes (%) (Auto) 25 % (24-48) 14 % (24-48) Monocytes (%) (Auto) 5 % (0-9) 5 % (0-9) Eosinophils (%) (Auto) 1 % (0-3) 0 % (0-3) Basophils (%) (Auto) 1 % (0-3) 0 % (0-3) Neutrophils # (Auto) 6.9 x10^3/uL (1.8-7.7) 8.9 x10^3/uL (1.8-7.7) Lymphocytes # (Auto) 2.5 x10^3/uL (1.0-4.8) 1.5 x10^3/uL (1.0-4.8) Monocytes # (Auto) 0.5 x10^3/uL (0.0-1.1) 0.6 x10^3/uL (0.0-1.1) Eosinophils # (Auto) 0.1 x10^3/uL (0.0-0.7) 0.0 x10^3/uL (0.0-0.7) Basophils # (Auto) 0.1 x10^3/uL (0.0-0.2) 0.0 x10^3/uL (0.0-0.2) Prothrombin Time 12.9 SEC (11.7-14.0) Prothromb Time International Ratio 1.0 (0.8-1.1) Sodium Level 142 mmol/L (136-145) 141 mmol/L (136-145) Potassium Level 4.3 mmol/L (3.5-5.1) 4.2 mmol/L (3.5-5.1) Chloride Level 107 mmol/L (98-107) 107 mmol/L (98-107) Carbon Dioxide Level 26 mmol/L (21-32) 23 mmol/L (21-32) Anion Gap 9 (6-14) 11 (6-14) Blood Urea Nitrogen 11 mg/dL (7-20) 7 mg/dL (7-20) Creatinine 0.9 mg/dL (0.6-1.0) 0.7 mg/dL (0.6-1.0) Estimated GFR (Cockcroft-Gault) 76.9 102.8 BUN/Creatinine Ratio 12 (6-20) 10 (6-20) Glucose Level 93 mg/dL (70-99) 81 mg/dL (70-99) Calcium Level 8.5 mg/dL (8.5-10.1) 8.0 mg/dL (8.5-10.1) Total Bilirubin 0.4 mg/dL (0.2-1.0) 0.8 mg/dL (0.2-1.0) Aspartate Amino Transf (AST/SGOT) 22 U/L (15-37) 89 U/L (15-37) Alanine Aminotransferase (ALT/SGPT) 32 U/L (14-59) 125 U/L (14-59) Alkaline Phosphatase 69 U/L (46-116) 92 U/L (46-116) Total Protein 7.5 g/dL (6.4-8.2) 5.8 g/dL (6.4-8.2) Albumin 4.0 g/dL (3.4-5.0) 3.0 g/dL (3.4-5.0) Albumin/Globulin Ratio 1.1 (1.0-1.7) 1.1 (1.0-1.7) Lipase 130 U/L (73-393) Laboratory Tests Test 02/19/19 04:45 White Blood Count 11.0 x10^3/uL (4.0-11.0) Red Blood Count 4.35 x10^6/uL (3.50-5.40) Hemoglobin 12.2 g/dL (12.0-15.5) Hematocrit 36.7 % (36.0-47.0) Mean Corpuscular Volume 84 fL (79-100) Mean Corpuscular Hemoglobin 28 pg (25-35) Mean Corpuscular Hemoglobin Concent 33 g/dL (31-37) Red Cell Distribution Width 13.0 % (11.5-14.5) Platelet Count 194 x10^3/uL (140-400) Neutrophils (%) (Auto) 81 % (31-73) Lymphocytes (%) (Auto) 14 % (24-48) Monocytes (%) (Auto) 5 % (0-9) Eosinophils (%) (Auto) 0 % (0-3) Basophils (%) (Auto) 0 % (0-3) Neutrophils # (Auto) 8.9 x10^3/uL (1.8-7.7) Lymphocytes # (Auto) 1.5 x10^3/uL (1.0-4.8) Monocytes # (Auto) 0.6 x10^3/uL (0.0-1.1) Eosinophils # (Auto) 0.0 x10^3/uL (0.0-0.7) Basophils # (Auto) 0.0 x10^3/uL (0.0-0.2) Sodium Level 141 mmol/L (136-145) Potassium Level 4.2 mmol/L (3.5-5.1) Chloride Level 107 mmol/L (98-107) Carbon Dioxide Level 23 mmol/L (21-32) Anion Gap 11 (6-14) Blood Urea Nitrogen 7 mg/dL (7-20) Creatinine 0.7 mg/dL (0.6-1.0) Estimated GFR (Cockcroft-Gault) 102.8 BUN/Creatinine Ratio 10 (6-20) Glucose Level 81 mg/dL (70-99) Calcium Level 8.0 mg/dL (8.5-10.1) Total Bilirubin 0.8 mg/dL (0.2-1.0) Aspartate Amino Transf (AST/SGOT) 89 U/L (15-37) Alanine Aminotransferase (ALT/SGPT) 125 U/L (14-59) Alkaline Phosphatase 92 U/L (46-116) Total Protein 5.8 g/dL (6.4-8.2) Albumin 3.0 g/dL (3.4-5.0) Albumin/Globulin Ratio 1.1 (1.0-1.7) Allergies Allergies Coded Allergies Type Severity Reaction Last Updated Verified doxycycline Allergy Intermediate Nausea 10/27/14 No Disposition/Orders: D/C to Home Patient Instructions D/C PLANNING 24 MIN EVY HAMMER MD Feb 19, 2019 11:04
--- NOTE | 2019-02-19 11:05 | DISCH ---
DISCHARGE INSTRUCTIONS Condition on Discharge Condition on Discharge: Stable Activity After Discharge Activity Instructions for Disc: Activity as tolerated Lifting Instructions after Dis: No heavy lifting, No pulling or pushing Driving Instructions after Dis: Do not drive Diet after Discharge Diet after Discharge: Regular Liquid Texture: Thin Liquid Contacting the DR. after DC Call your doctor for: If your condition worsens EVY HAMMER MD Feb 19, 2019 11:05
--- NOTE | 2019-02-19 11:45 | NUR ---
SW following. RN anticipates pt will discharge home today with self care. No further SW needs at this time.
--- NOTE | 2019-02-19 13:00 | NUR ---
Discharge Note: Patient was discharged home with self care. Patients IV's were discontinued without any complications per RN. Patients parents at the bedside at the time of discharge education. Patient was given discharge summary/instructions, follow-ups, and educational material. Patients prescriptions were sent to patients preferred pharmacy. Patient did not have any further questions or concerns. Patient was taken down to the main entrance via wheelchair with all personal belongings accompanied by DIONY Ponce, where her parents were waiting for her to take her home.
--- NOTE | 2019-02-20 09:07 | PATHOLOGY ---
[facility] Accession Number: [id number] . 01 Material submitted: . appendix - APPENDIX . 01 Clinical history: . Appendicitis . 02 Diagnosis: Appendix, appendectomy: - Acute appendicitis. LBQ 02/19/2019 1605 Local . 02 Comment: There is no evidence of rupture. (JPM/db; 02/19/2019) . 02 Electronically signed: . Sebastian Waller MD, Pathologist NPI- [id number] . 01 Gross description: . Received in formalin, labeled "Breanne Conner, appendix", is an intact appendix (7.7 cm length x 1.0 cm diameter) and attached mesoappendix (5.0 x 1.9 x 1.0 cm). The proximal resection margin is closed by a linear staple line 1.6 cm with an average 0.2 cm width. The staple line and the adjacent serosa is inked black. The serosa is dull and diffusely hemorrhagic and with no perforation. The lumen is dilated and filled with soft barrios-brown fecal material and with no discrete fecalith. The wall has an average thickness of 0.1 cm. The maira-appendiceal soft tissue has a yellow cut surface. Representatively submitted in A1. ([facility]; 02/18/2019) [facility] 02/18/20192013 Local . 02 Pathologist provided ICD-10: K35.80 . 02 CPT . 329558 Specimen Comment: A courtesy copy of this report has been sent to Specimen Comment: [phone]. Specimen Comment: Report sent to Performed at: [address], [place], [place] [id number] MD Melecio Pitts MD Phone: [phone] Performed at: 02 [facility] [address] [place] [id number] MD Sebastian Waller MD Phone: [phone]
== END 2019-02-19 13:00 | disposition home or self-care (01) | DRG 343 ==
LOC: ER 13:18 → 4 NORTH 17:10
PROVIDERS: ADMIT Internal Medicine; ATTEND Internal Medicine
PROC: 0DTJ4ZZ Resection of Appendix, Percutaneous Endoscopic Approach (ICD-10-PCS; principal; 2019-02-18 13:30)
DX: K35.80 Unspecified acute appendicitis (principal); E66.3 Overweight; R35.0 Frequency of micturition; F17.210 Nicotine dependence, cigarettes, uncomplicated; F32.9 Major depressive disorder, single episode, unspecified; K21.9 Gastro-esophageal reflux disease without esophagitis; Z68.28 Body mass index [BMI] 28.0-28.9, adult; Z88.1 Allergy status to other antibiotic agents; Z82.49 Family history of ischemic heart disease and other diseases of the circulatory system
CPT/HCPCS: 36415; 74177; 80053; 81001; 81025; 83690; 85025; 85610; 87086; 88304; 96365; 96375; 96376; A7015; J0171; J0330; J0780; J1100; J1885; J2001; J2250; J2270; J2370; J2405; J2543; J2704; J2710; J3010; J3490; J7030; J7120; Q9967; 99285-25; G0378